=== PATIENT | male | born 1950 | race Caucasian/White ===

== ENCOUNTER 2017-01-08 11:43 | Emergency (ER) | payer OTHER ==
[~2017-01-08] VITALS: Ht 180.3 cm; Wt 74.4 kg
[~2017-01-08 11:43] MED LIST: ATROVENT 00.5 MG/3 M INH; ELIMITE 5%60 GM TP; PROVENTIL2.5 MG/3 M INH
[2017-01-08 11:59] VITALS: BP 135/86
--- NOTE | 2017-01-08 12:10 | NUR ---
Pt ambulated to bed 4.
--- NOTE | 2017-01-08 12:12 | NUR ---
Dr. Acuna evaluating patient at bedside.
--- NOTE | 2017-01-08 12:16 | NUR ---
66/M presents to the ED for evaluation of body aches and requesting medication refill. Patient states he was recently released from [facility] x2 days ago and was being given HCTZ while in halfway for management of blood pressure. Patient states he was told to go to ER after being released to get a medication refill for HCTZ. Patient also c/o generalized body aches and an intermittent cough. Denies N/V/D. Denies fever or chills. Patient is AOX4, ambulates with steady gait. VSS.
[2017-01-08 12:30] VITALS: BP 135/86
--- NOTE | 2017-01-08 12:30 | NUR ---
Patient discharged with v/s stable. Written and verbal after care instructions given and explained. Patient alert, oriented and verbalized understanding of instructions. Ambulatory with steady gait. All questions addressed prior to discharge. ID band removed. Patient advised to follow up with PMD. Rx of hctz given. Patient educated on indication of medication including possible reaction and side effects. Opportunity to ask questions provided and answered.
--- NOTE | 2017-01-08 12:31 | NUR ---
Chart checked and completed. The patient's care was reviewed and supervised by Alfa Elliott RN.
[2017-02-11] MEDS ORDERED: PROMETHAZINE D118 M1 PO (17:18)
[2017-02-11] MEDS ORDERED: AUGMENTIN 500 M1 TAB PO (17:25)
== END 2017-01-08 12:30 | disposition home or self-care (01) ==
LOC: MED 11:51
DX: Z76.0 Encounter for issue of repeat prescription (principal); I10 Essential (primary) hypertension; J44.9 Chronic obstructive pulmonary disease, unspecified; J45.909 Unspecified asthma, uncomplicated; R05 Cough; F17.200 Nicotine dependence, unspecified, uncomplicated; Z88.5 Allergy status to narcotic agent

== ENCOUNTER 2017-02-01 10:58 | Emergency (ER) | payer OTHER ==
[~2017-02-01] VITALS: Ht 180.3 cm; Wt 77.1 kg
[2017-02-01 11:06] VITALS: BP 142/84
--- NOTE | 2017-02-01 12:30 | NUR ---
PATIENT LEFT WITHOUT BEING SEEN BY DR. CARBALLO. NO FURTHER CARE PROVIDED FOR PATIENT.
[2017-02-11] MEDS ORDERED: PROMETHAZINE D118 M1 PO (17:18)
[2017-02-11] MEDS ORDERED: AUGMENTIN 500 M1 TAB PO (17:25)
== END 2017-02-01 12:30 | disposition left against medical advice (07) ==
LOC: MED 10:58
DX: R05 Cough (principal); Z53.21 Procedure and treatment not carried out due to patient leaving prior to being seen by health care provider

== ENCOUNTER 2017-02-01 17:43 | Emergency (ER) | payer OTHER ==
[~2017-02-01] VITALS: Ht 177.8 cm; Wt 77.1 kg
[2017-02-01 17:54] VITALS: BP 137/81
--- NOTE | 2017-02-01 19:24 | NUR ---
PT TAKEN TO BED 4
--- NOTE | 2017-02-01 19:34 | NUR ---
PT IS 66/M BIB SELF C/O COUGH AND CONGESTION X 2 WEEKS, STATES HE HAS HX OF COPD AND SMOKES A PACK A DAY. DENIES N/V/D; SKIN IS PINK/WARM/DRY; AAOX4 WITH EVEN AND STEADY GAIT; HR EVEN AND REGULAR; PT DENIES ANY FEVER, CP, SOB AT THIS TIME; PATIENT STATES PAIN OF 0/10 AT THIS TIME; VSS; PATIENT POSITIONED FOR COMFORT; HOB ELEVATED; BEDRAILS UP X2; BED DOWN. ER MD MADE AWARE OF PT STATUS.
[2017-02-01] MEDS ORDERED: cefTRIAXone 1,000 MG in LIDOCAINE 1% ED 2.1 ML IM ONE (19:55)
--- NOTE | 2017-02-01 20:52 | NUR ---
Dr. Rosenbaum evaluating patient at bedside.
[2017-02-01 20:57] VITALS: BP 124/72
--- NOTE | 2017-02-01 20:57 | NUR ---
Patient discharged with v/s stable. Written and verbal after care instructions given and explained. Patient alert, oriented and verbalized understanding of instructions. Ambulatory with steady gait. All questions addressed prior to discharge. ID band removed. Patient advised to follow up with PMD. Rx of PROMETHAZINE DM AND AUGMENTIN given. Patient educated on indication of medication including possible reaction and side effects. Opportunity to ask questions provided and answered.
[2017-02-11] MEDS ORDERED: PROMETHAZINE D118 M1 PO (17:18)
[2017-02-11] MEDS ORDERED: AUGMENTIN 500 M1 TAB PO (17:25)
== END 2017-02-01 20:57 | disposition home or self-care (01) ==
LOC: MED 17:43
DX: J20.9 Acute bronchitis, unspecified (principal); J02.9 Acute pharyngitis, unspecified; J45.909 Unspecified asthma, uncomplicated; J44.9 Chronic obstructive pulmonary disease, unspecified; Z88.5 Allergy status to narcotic agent
CPT/HCPCS: 96372; 99283; J0696; J2001

== ENCOUNTER 2017-02-10 21:34 | Inpatient (IN) | payer OTHER ==
[~2017-02-10] VITALS: Ht 180.3 cm; Wt 76.7 kg
[~2017-02-10 21:34] MED LIST changes: +ATRN INH; -ATROVENT 00.5 MG/3 M INH; -ELIMITE 5%60 GM TP; +PRON INH; -PROVENTIL2.5 MG/3 M INH
[2017-02-10 21:50] VITALS: BP 140/78
--- NOTE | 2017-02-11 00:29 | NUR ---
PT TAKEN TO BED 7
--- NOTE | 2017-02-11 00:29 | NUR ---
PATIENT PRESENTS TO ED WITH L LEG PAIN, 6/10, 16IN GIRTH AT THE [facility] AND 11IN AT [place] . PT STATES HE HAS COPD AND BRONCHITIS, IS A SMOKER AND HAS BEEN SMOKING SINCE HE WAS 9 YEARS OLD.HE WAS PRESCRIBED AMOX 5 DAYS AGO FOR PNEUMONIA AND IS STILL CURRENTLY TAKING THE MEDICATIONS .PT DENIES N/V/D; SKIN IS PINK/WARM/DRY; AAOX4 WITH EVEN AND STEADY GAIT; LUNGS CLEAR BL; HR EVEN AND REGULAR; PT DENIES ANY FEVER, CP, SOB, OR COUGH AT THIS TIME; PATIENT STATES PAIN OF 6/10 AT THIS TIME; VSS; PATIENT POSITIONED FOR COMFORT; HOB ELEVATED; BEDRAILS UP X2; BED DOWN. ER MD MADE AWARE OF PT STATUS.
--- NOTE | 2017-02-11 00:30 | NUR ---
Dr. Sanches evaluating patient at bedside.
--- NOTE | 2017-02-11 00:51 | NUR ---
X-Ray at bedside.
[2017-02-11 01:05] LABS: HEMATOCRIT 30.5 % (36-52); HEMOGLOBIN 9.7 g/dL (12.0-18.0); MEAN CORPUSCULAR HEMOGLOBIN 25 pg (27-31); MEAN CORPUSCULAR HGB CONC 32 g/dL (33-37); MEAN CORPUSCULAR VOLUME 78 fL (80-94); PLATELET COUNT (AUTO) 517 K/uL (140-450); RED BLOOD CELL COUNT(AUTO) 3.92 MIL/uL (4.20-6.10); RED CELL DISTRIBUTION WIDTH 16.7 % (11.6-13.7); WHITE BLOOD COUNT (AUTO) 9.8 K/uL (4.8-10.8)
--- NOTE | 2017-02-11 01:06 | NUR ---
Ultrasound at bedside.
--- NOTE | 2017-02-11 02:44 | NUR ---
Pt report given to ISABELL RAMIREZ . Transfer of care at this time.
--- NOTE | 2017-02-11 02:44 | NUR ---
Patient will be admitted to care of DR MCNEAL. Admited to MS 107A. Will go to room 107A . Belongings list completed. Report to ISABELL RAMIREZ .
--- NOTE | 2017-02-11 02:45 | NUR ---
RECEIVED PT REPORT FROM [facility] AT THIS TIME, PT WILL BE ADMITTED TO FLOOR.
--- NOTE | 2017-02-11 03:05 | NUR ---
PT AMBULATED TO ROOM WITHOUT ASSISTANCE. IS STABLE, ORIENTED TO UNIT. RECEIVED IN ROOM 107A. SHIFT ASSESSMENT DONE, PT NOTED A/O X3, NO ACUTE DISTRESS NOTED AT THIS TIME. PT VITAL SIGNS ARE STABLE, PT ON ROOM AIR WITH OXYGEN SATURATION AT 98%. PT IS AFEBRILE. DENIES CHEST PAIN, SOB, OR ANY PAIN AND DISCOMFORT. IV ACCESS TO RT AC #20G, PATENT AND INTACT, SALINE LOCKED. ALL SKIN INTACT. LUNG SOUNDS ARE CLEAR, BOWEL SOUNDS ARE ACTIVE. SAFETY PRECAUTIONS IMPLEMENTED. DISCUSSED PLAN OF CARE WITH PT, VERBALIZED UNDERSTANDING. CALL LIGHT PLACED WITHIN REACH. WILL CONTINUE TO MONITOR PT.
[2017-02-11 03:08] VITALS: BP 143/72
--- NOTE | 2017-02-11 04:00 | NUR ---
PT SLEEPING WELL, NO S/S OF DISTRESS. CALL LIGHT WITHIN REACH.
[2017-02-11 05:11] LABS: BASOPHILS % (MANUAL) 1 % (0-2); EOSINOPHILS % (MANUAL) 2 % (0-4); LYMPHOCYTES % (MANUAL) 31 % (20-46); MONOCYTES % (MANUAL) 5 % (5-12); NEUTROPHILS % (MANUAL) 61 (43-65)
--- NOTE | 2017-02-11 06:20 | NUR ---
ATTEMPT TO REACH DR. NICHOLSON LINE AT [phone], NO ANSWER BUSY TONE. NEED ORDERS FOR PT.
[2017-02-11] MEDS ORDERED: MORPHINE SULFATE 2 MG/ML SYR IVP PRN (06:35)
[2017-02-11] MEDS ORDERED: LORazepam 2 MG/ML VIAL IVP PRN (06:35)
[2017-02-11] MEDS ORDERED: ALBUTEROL 0.083% 2.5 MG/3 ML NEBU IH PRN (06:35)
[2017-02-11] MEDS ORDERED: ACETAMINOPHEN 325 MG TAB PO PRN (06:35)
[2017-02-11] MEDS ORDERED: ONDANSETRON 4 MG/2 ML VIAL IVP PRN (06:35)
--- NOTE | 2017-02-11 07:30 | NUR ---
DR HANCOCK AT PT BEDSIDE. PT ENDORSED TO TRAVIS RAMIREZ FOR CONTINUITY OF CARE AT BEDSIDE. PT STABLE, NO DISTRESS. CALL LIGHT WITHIN REACH.
--- NOTE | 2017-02-11 07:31 | NUR ---
RECEIVED REPORT AT BEDSIDE FOR CONTINUITY OF CARE. DR. HANCOCK IS EXAMINING HIM. PT IS ALERT AND ORIENTED X 4. HE DOES HAVE SLURRED SPEAK, HARD TO UNDERSTAND. HE HAS AN IV R AC 20G SL. HE HAS AN EDEMATOUS L ANKLE. HE IS TO HAVE A CT OF CHEST W/W/O CONTRAST TODAY. RECEIVED SIGNATURE FOR CONSENT. NO OTHER COMPLAINTS. NO SIGNS OF DISTRESS. WILL CONTINUE TO MONITOR PT.
[2017-02-11 08:00] VITALS: BP 149/99
--- NOTE | 2017-02-11 08:05 | NUR ---
V/S WITHIN NORMAL RANGE. BP SLIGHTLY HIGH. ASKED PT IF HE HAS HX OF HTN. PT STATES NO. PT HAS NO OTHER COMPLAINTS OR PAIN. HE IS EATING BREAKFAST. ATE 100%. WILL CONTINUE TO MONITOR PT.
--- NOTE | 2017-02-11 08:24 | NUR ---
PATIENT HAS BEEN SCREENED AND CATEGORIZED MODERATE NUTRITION RISK. PATIENT WILL BE SEEN WITHIN 3-5 DAYS OF ADMISSION. 02/13/17-02/15/[address]
[2017-02-11] MEDS: ENOXAPARIN 40 MG/0.4 ML SYR SUBQ SCH (09:18)
--- NOTE | 2017-02-11 09:20 | NUR ---
ADMINISTERED MORNING MEDS. PT TOLERATED WELL. PT IS VISITING WITH FRIEND. WILL CONTINUE TO MONITOR.
--- NOTE | 2017-02-11 09:40 | NUR ---
DR. WIGGINS CALLED. ASKED ABOUT PT. GAVE HIM HX AND REPORT. GAVE TELEPHONE ORDERS. WILL PUT THEM IN.
[2017-02-11 09:49] LABS: INR 1.1 (0.8-1.2); PARTIAL THROMBOPLASTIN TIME 28.1 secs (22-35.6)
[2017-02-11 09:50] LABS: PROTHROMBIN TIME 10.1 secs (10.8-13.4)
[2017-02-11 09:51] LABS: ANION GAP 10.6 (8-16); CALCIUM 8.3 mg/dL (8.5-10.1); CARBON DIOXIDE 30.4 mmol/L (21-32); CREATININE 0.8 mg/dL (0.6-1.3); TOTAL BILIRUBIN 0.2 mg/dL (0.0-1.0)
[2017-02-11 09:52] LABS: ALBUMIN 2.5 g/dL (3.4-5.0); TOTAL PROTEIN, SERUM 7.3 g/dL (6.4-8.2)
[2017-02-11 09:54] LABS: CREATINE KINASE MB 1.3 ng/mL (0-3.6)
[2017-02-11] MEDS ORDERED: ECOTRIN 81 MG TABEC PO SCH (10:02)
[2017-02-11] MEDS ORDERED: LOSARTAN 50 MG TAB PO SCH (10:02)
[2017-02-11] MEDS ORDERED: METOPROLOL 25 MG TAB PO SCH (10:03)
--- NOTE | 2017-02-11 11:00 | NUR ---
RADIOLOGY CAME AND ARCHITECTURAL DESIGNER PT CT CHEST CT W/ AND W/OUT CONTRAST.
--- NOTE | 2017-02-11 11:22 | NUR ---
PT IS BACK FROM CT. PT TOLERATED WELL. VISITING WITH FRIEND. WILL CONTINUE TO MONITOR PT.
--- NOTE | 2017-02-11 11:44 | NUR ---
CM NOTE INITIAL REVIEW FAXED TO [facility] (FAX# [phone]) AND [facility] (FAX# [phone], C: [phone])
[2017-02-11 12:00] VITALS: BP 133/77
--- NOTE | 2017-02-11 13:00 | NUR ---
PT IS STILL HUNGRY. WANTED ME TO BUY HIM A SODA AND A CANDY BAR. PT TRIED TO GIVE ME MONEY. I TOLD HIM, I COULD CALL THE KITCHEN AND ORDER A SODA, NON CAFFEINATED AND A SANDWICH. PT AGREED. ORDERED HIM A CHICKEN SALAD AND A DIET SODA. PT'S FRIEND AT BEDSIDE. SHE'S BEEN HERE ALL DAY, VISITING WITH HIM. PT IS STABLE AND HAS NO COMPLAINTS.
--- NOTE | 2017-02-11 15:05 | NUR ---
ASLEEP RESTING COMFORTABLY NO RESPIRATORY DISTRESS NOTED HHN PRN THERAPY NOT INDICATE AT THIS TIME
[2017-02-11 15:42] LABS: AMPHETAMINE, URINE POS. ng/ml (NEG <=1000); BARBITURATE, URINE NEG. ng/ml (NEG <=200); BENZODIAZEPINE, URINE NEG. ng/mL (NEG <=200); CANNABINOID, URINE NEG. ng/mL (NEG <=50); COCAINE, URINE NEG. ng/mL (NEG <=300); OPIATE, URINE NEG. ng/mL (NEG <=2000); PHENCYCLIDINE SCREEN,URINE NEG. ng/mL (NEG <=25)
[2017-02-11 16:00] VITALS: BP 121/72
--- NOTE | 2017-02-11 16:52 | NUR ---
PT IS PATIENTLY WAITING FOR DINNER. NO SIGNS OF DISTRESS. NO COMPLAINTS. FRIEND AT BEDSIDE. WILL CONTINUE TO MONITOR PT.
[2017-02-11] MEDS ORDERED: DM/P118S7 PO (17:18)
[2017-02-11] MEDS ORDERED: AMOX-999 PO (17:25)
--- NOTE | 2017-02-11 18:11 | NUR ---
PT FINISHED WITH DINNER. ATE 100%. PT STATES HE COULD EAT ANOTHER TRAY. I TOLD PT THAT IF HE NEEDS A SNACK LATER, HE CAN ASK FOR ANOTHER SANDWICH. NO SIGNS OF DISTRESS. NO COMPLAINTS. PT'S FRIEND IS NOW GONE. HE IS RESTING COMFORTABLY IN BED. WILL CONTINUE TO MONITOR PT.
--- NOTE | 2017-02-11 19:00 | NUR ---
RECEIVED CHANGE OF SHIFT REPORT FORM TRAVIS RAMIREZ FOR PT CONTINUITY OF CARE AT PT BEDSIDE. PT NOTED STABLE, SLEEPING WELL. CALL LIGHT WITHIN REACH.
--- NOTE | 2017-02-11 19:05 | NUR ---
ENDORSED PT TO THE MANAGER [employer] SALES NURSE AT BEDSIDE FOR CONTINUITY OF CARE. PT IS IN STABLE CONDITION. RESTING COMFORTABLY. NO COMPLAINTS.
--- NOTE | 2017-02-11 19:21 | NUR ---
SHIFT ASSESSMENT DONE, PT NOTED A/O X3, NO ACUTE DISTRESS NOTED AT THIS TIME. VITAL SIGNS ARE STABLE, PT ON ROOM AIR WITH OXYGEN SATURATION AT 98%. IS AFEBRILE. DENIES CHEST PAIN, SOB, OR ANY PAIN AND DISCOMFORT. IV ACCESS TO RT AC #20G, PATENT AND INTACT, SALINE LOCKED. ALL SKIN INTACT. LUNG SOUNDS ARE CLEAR, BOWEL SOUNDS ARE ACTIVE. NOTED SMALL RT LOWER LEG AND ANKLE SWELLING, +2 EDMEA, ELEVATED TO PILLOW, COOL TO TOUCH. SAFETY PRECAUTIONS IMPLEMENTED. DISCUSSED PLAN OF CARE WITH PT, VERBALIZED UNDERSTANDING. CALL LIGHT PLACED WITHIN REACH. WILL CONTINUE TO MONITOR PT.
[2017-02-11 20:00] VITALS: BP 124/57
[2017-02-11] MEDS: SIMVASTATIN 20 MG TAB PO SCH (20:25)
--- NOTE | 2017-02-11 20:25 | NUR ---
PROVIDED PT WITH PO SCHEDULED MEDICATIONS, TOLERATED WELL. NO ACUTE S/S OF RESPIRATORY DISTRESS NOTED. PT RESTING WELL. CALL LIGHT WITHIN REACH.
--- NOTE | 2017-02-11 22:50 | NUR ---
PT NOTE ASLEEP AT THIS TIME, NO S/S OF ACUTE DISTRESS. RESTING COMFORTABLY. CALL LIGHT WITHIN REACH.
--- NOTE | 2017-02-11 23:30 | NUR ---
PT WAS SLEEPING WELL, NO S/S OF DISTRESS. VITAL SIGNS REMAINS STABLE. CALL LIGHT WITHIN REACH.
[2017-02-12] VITALS: BP 130/44
--- NOTE | 2017-02-12 02:07 | NUR ---
PT SLEEPING WELL, NO SIGNS OF DISTRESS. CALL LIGHT WITHIN REACH.
[2017-02-12 04:00] VITALS: BP 150/76
--- NOTE | 2017-02-12 04:01 | NUR ---
VITAL SIGNS REMAIN STABLE. NO DISTRESS NOTED. CALL LIGHT WITHIN REACH.
--- NOTE | 2017-02-12 06:03 | NUR ---
PT REMAINS SLEEPING. NO S/S OF ACUTE DISTRESS NOTED. CALL LIGHT WITHIN REACH.
[2017-02-12 06:48] LABS: BASOPHILS % (AUTO) 0.5 % (0.0-2.0); EOSINOPHILS # (AUTO) 0.3 K/uL (0-0.4); HEMATOCRIT 30.8 % (36-52); HEMOGLOBIN 10.2 g/dL (12.0-18.0); LYMPHOCYTES # (AUTO) 2.9 K/uL (2.0-11.5); MEAN CORPUSCULAR HEMOGLOBIN 26 pg (27-31); MEAN CORPUSCULAR HGB CONC 33 g/dL (33-37); MEAN CORPUSCULAR VOLUME 78 fL (80-94); MONOCYTES # (AUTO) 0.6 K/uL (0.8-1.0); NEUTROPHILS # (AUTO) 5.5 K/uL (1.8-7.7); NEUTROPHILS % (AUTO) 59.5 % (42.2-75.2); PLATELET COUNT (AUTO) 502 K/uL (140-450); RED BLOOD CELL COUNT(AUTO) 3.98 MIL/uL (4.20-6.10); RED CELL DISTRIBUTION WIDTH 16.5 % (11.6-13.7); WHITE BLOOD COUNT (AUTO) 9.3 K/uL (4.8-10.8)
[2017-02-12 07:09] LABS: ANION GAP 8.1 (8-16); CALCIUM 8.3 mg/dL (8.5-10.1); CARBON DIOXIDE 30.6 mmol/L (21-32); CREATININE 0.8 mg/dL (0.6-1.3); POTASSIUM 3.7 mmol/L (3.5-5.1)
--- NOTE | 2017-02-12 07:15 | NUR ---
ENDORSED PT TO EZRA Campbell RN AT PT BEDSIDE FOR CONTINUITY OF CARE.
[2017-02-12 07:30] LABS: CREATINE KINASE MB 0.8 ng/mL (0-3.6)
--- NOTE | 2017-02-12 07:30 | NUR ---
RECEIVED PT AAOX4. NO SOB NOTED. NO C/O PAIN AT THIS TIME. IV TO RT AC PATENT AND INTACT. CHEST CLEAR. ABDOMEN SOFT, BOWEL SOUNDS PRESENT. LT ANKLE SWELLING NOTED, ELEVATED WITH PILLOW WHILE IN BED. NPO MAINTAINED FOR PROCEDURE. INSTRUCTED PT TO CALL FOR ASSISTANCE, CALL LIGHT WITHIN REACH, PT VERBALIZED UNDERSTANDING.
[2017-02-12 08:00] VITALS: BP 145/68
[2017-02-12] MEDS ORDERED: ASPIRIN 81 MG TAB.CHEW PO SCH ×2 (09:00)
[2017-02-12] MEDS ORDERED: LOSARTAN 50 MG TAB PO SCH (09:00)
[2017-02-12] MEDS ORDERED: METOPROLOL 25 MG TAB PO SCH (09:00)
[2017-02-12] MEDS: ENOXAPARIN 40 MG/0.4 ML SYR SUBQ SCH (09:22)
[2017-02-12 11:20] VITALS: BP 125/73
--- NOTE | 2017-02-12 11:20 | NUR ---
PT WHEELED BY [facility] ([facility]) TO NUCLEAR DEPARTMENT FOR STRESS TEST. NPO MAINTAINED, VITAL SIGNS STABLE.
--- NOTE | 2017-02-12 13:00 | NUR ---
PT CAME BACK FROM NUCLEAR DEPARTMENT FROM STRESS TEST , IN STABLE CONDITION. LUNCH SERVED.
--- NOTE | 2017-02-12 13:30 | NUR ---
CM NOTE INITIAL REVIEW FAXED TO [facility] (FAX# [phone]) AND [facility] (FAX# [phone], C: [phone])
--- NOTE | 2017-02-12 14:04 | NUR ---
DOBUTAMINE STRESS TEST DONE
--- NOTE | 2017-02-12 14:09 | NUR ---
PT WHEELED BACK BY [facility] TO [facility] FOR 2ND PHASE OF STRESS TEST.
[2017-02-12] MEDS ORDERED: DOBUTamine 250 MG/D5W PREMIX 250 ML IV SCH (15:25)
[2017-02-12 16:00] VITALS: BP 138/89
--- NOTE | 2017-02-12 17:30 | NUR ---
PAGED DR. WIGGINS FOR DOBUTAMINE STRESS TEST RESULTS, AWAITING FOR CALL BACK.
--- NOTE | 2017-02-12 18:20 | NUR ---
PT'S FACE SHEET FAXED TO [facility] ). FAX RECEIVE CONFIRMATION PLACED ON PT'S CHART.
--- NOTE | 2017-02-12 18:30 | NUR ---
PAGED Loc JUNG. REGARDING DR. WIGGINS'S PLAN FOR TRANSFERRING PT TO HIGHER LEVEL OF CARE ([facility]) FOR ANGIOGRAM UNDER DR. HANCOCK SERVICE TOMORROW. AWAITING FOR CALL BACK.
--- NOTE | 2017-02-12 19:21 | NUR ---
PT AWAKE, MAKING A CALL ON THE PHONE. NO COMPLAINTS MADE. DR. HANCOCK HERE TO SEE PT. WILL ENDORSE TO NEXT SHIFT NURSE FOR CONTINUITY OF CARE.
--- NOTE | 2017-02-12 19:31 | NUR ---
RECEIVED PT IN STABLE CONDITION FROM ASHLEY MUNGUIA. NO SOB, NO SIGNS OF DISTRESS. PT IS AOX4, AMBULATORY. VS STABLE ON ROOM AIR. PT DENIES PAIN AT THIS TIME. PT AWARE THAT HE [place] [facility] [place], AND WILL BE NPO AFTER 0700 FOR ANGIOGRAM PROCEDURE. IV TO LT HAND 20G PATENT, ASYMPTOMATIC, INTACT, PATENT, SALINE LOCKED. SKIN IS INTACT. SWELLING NOTED TO LT LEG. PLAN OF CARE DISCUSSED WITH PT. SAFETY MEASURES IN PLACE. CALL LIGHT WITHIN REACH. WILL CONTINUE TO MONITOR.
[2017-02-12 20:00] VITALS: BP 125/66
[2017-02-12] MEDS: SIMVASTATIN 20 MG TAB PO SCH (20:41)
--- NOTE | 2017-02-12 20:41 | NUR ---
PT TOLERATED DUE MED WELL. NO SOB, NO SIGNS OF DISTRESS. PT DENIES PAIN AT THIS TIME. IV SITE ASYMPTOMATIC, INTACT, SALINE LOCKED. PT REQUESTED PUDDING, PROVIDED PT WITH PUDDING. PLAN OF CARE DISCUSSED WITH PT. CALL LIGHT WITHIN REACH. SAFETY MEASURES IN PLACE. WILL CONTINUE TO MONITOR.
--- NOTE | 2017-02-12 21:46 | NUR ---
FAXED PTS INFO TO [facility] TO [place] [facility] [place].
--- NOTE | 2017-02-12 22:06 | NUR ---
SPOKE WITH GRAHAM FROM [facility], PTS ALS TRANSPORT IS ARRANGED FOR TOMORROW, 02/13 AT 0800 TO [facility] [place].
--- NOTE | 2017-02-12 22:31 | NUR ---
PT ASLEEP IN BED. NO SOB, NO SIGNS OF DISTRESS. IV SITE ASYMPTOMATIC, INTACT, SALINE LOCKED. SAFETY MEASURES IN PLACE. CALL LIGHT WITHIN REACH. WILL CONTINUE TO MONITOR.
[2017-02-13] VITALS: BP 112/55
--- NOTE | 2017-02-13 00:10 | NUR ---
VS STABLE ON ROOM AIR. NO SOB, NO SIGNS OF DISTRESS. PT DENIES PAIN AT THIS TIME. IV SITE ASYMPTOMATIC, INTACT, SALINE LOCKED. PLAN OF CARE DISCUSSED WITH PT. SAFETY MEASURES IN PLACE. CALL LIGHT WITHIN REACH. WILL CONTINUE TO MONITOR.
[2017-02-13 01:59] VITALS: BP 130/59
--- NOTE | 2017-02-13 03:11 | NUR ---
PTS HR DROP TO 47, CHECKED ON PT. EASILY AWAKE, NO SOB, NO SIGNS OF DISTRESS, NO C/O PAIN. VS STABLE ON ROOM AIR. WILL CONTINUE TO MONITOR.
[2017-02-13 04:00] VITALS: BP 130/59
[2017-02-13 06:09] LABS: BASOPHILS # (AUTO) 0.2 K/uL (0.00-0.22); BASOPHILS % (AUTO) 1.6 % (0.0-2.0); EOSINOPHILS # (AUTO) 0.2 K/uL (0-0.4); EOSINOPHILS % (AUTO) 2.3 % (0.0-4.0); HEMATOCRIT 30.4 % (36-52); HEMOGLOBIN 9.8 g/dL (12.0-18.0); LYMPHOCYTES # (AUTO) 2.5 K/uL (2.0-11.5); LYMPHOCYTES % (AUTO) 26.3 % (20.5-51.1); MEAN CORPUSCULAR HEMOGLOBIN 25 pg (27-31); MEAN CORPUSCULAR HGB CONC 32 g/dL (33-37); MEAN CORPUSCULAR VOLUME 78 fL (80-94); MONOCYTES # (AUTO) 0.7 K/uL (0.8-1.0); MONOCYTES % (AUTO) 7.5 % (1.7-9.3); NEUTROPHILS % (AUTO) 62.3 % (42.2-75.2); PLATELET COUNT (AUTO) 530 K/uL (140-450); RED BLOOD CELL COUNT(AUTO) 3.91 MIL/uL (4.20-6.10); WHITE BLOOD COUNT (AUTO) 9.6 K/uL (4.8-10.8)
[2017-02-13 06:31] LABS: INR 1.1 (0.8-1.2); PARTIAL THROMBOPLASTIN TIME 26.1 secs (22-35.6); PROTHROMBIN TIME 10.3 secs (10.8-13.4)
[2017-02-13 06:41] LABS: ANION GAP 8.5 (8-16); CALCIUM 8.2 mg/dL (8.5-10.1); CARBON DIOXIDE 30.4 mmol/L (21-32); CREATININE 0.9 mg/dL (0.6-1.3); POTASSIUM 3.9 mmol/L (3.5-5.1)
--- NOTE | 2017-02-13 06:48 | NUR ---
REPORT CALLED TO ASHLEY RUTHERFORD. AT [facility].
--- NOTE | 2017-02-13 07:30 | NUR ---
RECEIVED PT AAOX4. NO SOB NOTED. NO C/O PAIN AT THIS TIME. IV TO LT HAND PATENT AND INTACT. CHEST CLEAR. ABDOMEN SOFT, BOWEL SOUNDS PRESENT. SLIGHT LT ANKLE SWELLING NOTED, ELEVATED WITH PILLOW WHILE IN BED. NPO MAINTAINED FOR ANGIOGRAM AT [facility]. INSTRUCTED PT TO CALL FOR ASSISTANCE, CALL LIGHT WITHIN REACH, PT VERBALIZED UNDERSTANDING.
--- NOTE | 2017-02-13 07:32 | NUR ---
ENDORSED PT IN STABLE CONDITION TO EZRA Cheung RN. ALL NEEDS HAVE BEEN MET AT THIS TIME.
--- NOTE | 2017-02-13 07:32 | NUR ---
PER [facility] [employer] DIRECTOR REQUEST, ENDORSED TO EZRA Cheung TO FAX AM CBC, BMP, PT, PTT, AND LATEST EKG TO THEM.
--- NOTE | 2017-02-13 07:40 | NUR ---
DISCHARGE INSTRUCTIONS GIVEN TO PT WHICH VERBALIZED FULL UNDERSTANDING OF THE REASON WHY PT IS BEING TRANSFERRED TO [facility].
[2017-02-13 07:45] VITALS: BP 149/87
--- NOTE | 2017-02-13 08:00 | NUR ---
PT WHEELED OUT BY [facility]SPORT IN STABLE CONDITION. PT AAOX4. NO SOB NOTED. NO C/O PAIN AT THIS TIME. DISCHARGE PAPERS SIGNED BY PT, VERBALIZED UNDERSTANDING. PT IS GOING TO [facility] FOR ANGIOGRAM.
--- NOTE | 2017-02-13 08:05 | NUR ---
ekg, cbc, cmp, pt, inr and ptt faxed to KRISH AT [facility] [employer] ([phone]).
--- NOTE | 2017-02-13 08:29 | NUR ---
FAXED CONCURRENT REVIEW TO [facility] [phone] PHONE LETA [phone] APRIL [phone] SPOKE WITH RHIANNA AT [facility],. SHE SAID THE PROCEDURE WILL BE DONE AT 1300. I INFORMED HER THAT THE PATIENT WAS ALREADY PICKED UP BY [facility]. I SPOKE WITH ERMIAS FROM [facility]. THE AUTH FOR [facility]ORT IS [id number], AND I INFORMED [facility]. THE AUTH FRO [facility] IS [id number] AND I INFORMED RHIANNA AT [facility].
== END 2017-02-13 08:00 | disposition short-term general hospital (02) | DRG 198 ==
LOC: MED 21:34 → MTU 02-11 05:54
PROVIDERS: ADMIT Hospitalist; ATTEND Hospitalist
DX: I20.9 Angina pectoris, unspecified (principal); J44.9 Chronic obstructive pulmonary disease, unspecified; F15.10 Other stimulant abuse, uncomplicated; M19.90 Unspecified osteoarthritis, unspecified site; F17.210 Nicotine dependence, cigarettes, uncomplicated; R60.0 Localized edema; F19.10 Other psychoactive substance abuse, uncomplicated; D64.9 Anemia, unspecified; Z59.0 Homelessness; Z87.828 Personal history of other (healed) physical injury and trauma
CPT/HCPCS: 36415; 71010; 71270; 80048; 80053; 80305; 82550; 82553; 83735; 83880; 84484; 85025; 85379; 85610; 85730; 87081; 93005; 93017; 93971; 99285; A9500; A9502; J1250; J1650; Q0092; Q9967

== ENCOUNTER 2017-02-21 23:53 | Emergency (ER) | payer OTHER ==
[~2017-02-21] VITALS: Ht 180.3 cm; Wt 74.8 kg
[~2017-02-21 23:53] MED LIST changes: -ATRN INH; +ATROVENT 00.5 MG/3 M INH; +AUGMENTIN 500 M1 TAB PO; +ELIMITE 5%60 GM TP; +PROMETHAZINE D118 M1 PO; -PRON INH; +PROVENTIL2.5 MG/3 M INH
--- NOTE | 2017-02-22 02:53 | NUR ---
Patient to bed 08.
--- NOTE | 2017-02-22 02:55 | NUR ---
Dr. Akbar evaluating patient at bedside.
[2017-02-22 03:17] VITALS: BP 125/76
--- NOTE | 2017-02-22 03:17 | NUR ---
Patient discharged with v/s stable. Written and verbal after care instructions given and explained. Patient verbalized understanding. Ambulatory with steady gait. All questions addressed prior to discharge. Advised to follow up with PMD.
== END 2017-02-22 03:17 | disposition home or self-care (01) ==
LOC: MED 23:53
DX: S80.11XA Contusion of right lower leg, initial encounter (principal); J44.9 Chronic obstructive pulmonary disease, unspecified; X58.XXXA Exposure to other specified factors, initial encounter; Y93.89 Activity, other specified; Y92.89 Other specified places as the place of occurrence of the external cause; Y99.8 Other external cause status

== ENCOUNTER 2017-06-30 10:08 | Emergency (ER) | payer OTHER ==
[~2017-06-30] VITALS: Ht 170.2 cm; Wt 72.6 kg
[~2017-06-30 10:08] MED LIST changes: +ATRN INH; -ATROVENT 00.5 MG/3 M INH; -AUGMENTIN 500 M1 TAB PO; -ELIMITE 5%60 GM TP; -PROMETHAZINE D118 M1 PO; +PRON INH; -PROVENTIL2.5 MG/3 M INH
[2017-06-30 10:55] VITALS: BP 176/78
[2017-06-30 14:19] VITALS: BP 148/75
== END 2017-06-30 14:19 | disposition home or self-care (01) ==
LOC: MED 10:10
DX: I10 Essential (primary) hypertension (principal); Z88.5 Allergy status to narcotic agent; J44.9 Chronic obstructive pulmonary disease, unspecified; Z98.61 Coronary angioplasty status; F17.200 Nicotine dependence, unspecified, uncomplicated
CPT/HCPCS: 99283

== ENCOUNTER 2018-05-08 20:23 | Inpatient (IN) | payer OTHER ==
[~2018-05-08] VITALS: Ht 177.8 cm; Wt 76.7 kg
[~2018-05-08 20:23] MED LIST changes: +ALBUTEROL 0.083% 2.5 MG/3 ML NEBU INH ONE; +MAG SULF 2000 MG/WATER PREMIX 50 ML IV ONE; +NACL 0.9% 1,000 ML IV ONE; +methylPREDNISolone SS 125 MG in WATER STERILE 2 ML IV ONE
[2018-05-08 20:31] VITALS: BP 180/84
--- NOTE | 2018-05-08 20:33 | NUR ---
TO BED # 3 AMBULATORY, REPORT GIVEN TO ABHAY RAMIREZ.
--- NOTE | 2018-05-08 20:34 | NUR ---
PATIENT PRESENTS TO ED WITH SOB X4 DAYS. PT DENIES N/V/D; SKIN IS PINK/WARM/DRY; AAOX4 WITH EVEN AND STEADY GAIT; LUNGS CLEAR BL; HR EVEN AND REGULAR; PT DENIES ANY FEVER, CP, OR COUGH AT THIS TIME; PATIENT STATES PAIN OF 6/10 AT THIS TIME; VSS; PATIENT POSITIONED FOR COMFORT; HOB ELEVATED; BEDRAILS UP X1; BED DOWN. ER MD MADE AWARE OF PT STATUS.
--- NOTE | 2018-05-08 20:36 | NUR ---
Dr. Rosenbaum evaluating patient at bedside.
--- NOTE | 2018-05-08 20:56 | NUR ---
Breathing treatment administered at bedside by respiratory therapist.
--- NOTE | 2018-05-08 21:06 | NUR ---
PATIENT CAME IN TO ER COMPLAINING OF SHORTNESS OF BREATH THAT HAS LASTED 4 DAYS. STATES THAT HE HAS A PRODUCTIVE COUGH THAT PRODUCES YELLOW AND GREEN PHLEGM. PT SMOKES HALF A PACK A DAY FOR 72 YEARS.
[2018-05-08 21:17] LABS: BASOPHILS % (AUTO) 0.5 % (0.0-2.0); EOSINOPHILS # (AUTO) 0.2 K/uL (0-0.4); EOSINOPHILS % (AUTO) 1.4 % (0.0-4.0); HEMOGLOBIN 11.8 g/dL (12.0-18.0); LYMPHOCYTES # (AUTO) 2.5 K/uL (2.0-11.5); LYMPHOCYTES % (AUTO) 23.6 % (20.5-51.1); MEAN CORPUSCULAR HEMOGLOBIN 29 pg (27-31); MEAN CORPUSCULAR HGB CONC 34 g/dL (33-37); MEAN CORPUSCULAR VOLUME 86.2 fL (80-94); MONOCYTES # (AUTO) 0.8 K/uL (0.8-1.0); MONOCYTES % (AUTO) 7.8 % (1.7-9.3); NEUTROPHILS # (AUTO) 7.1 K/uL (1.8-7.7); NEUTROPHILS % (AUTO) 66.7 % (42.2-75.2); PLATELET COUNT (AUTO) 374 K/uL (140-450); RED BLOOD CELL COUNT(AUTO) 4.06 MIL/uL (4.20-6.10); RED CELL DISTRIBUTION WIDTH 13.9 % (11.6-13.7); WHITE BLOOD COUNT (AUTO) 10.7 K/uL (4.8-10.8)
[2018-05-08] MEDS ORDERED: LEVOFLOXACIN 750 MG/D5W PREMIX 150 ML IV ONE (21:30)
[2018-05-08] MEDS ORDERED: VANCOMYCIN 1,000 MG in DEXTROSE 5% 250 ML IV ONE (21:30)
[2018-05-08 21:31] LABS: ALBUMIN 2.9 g/dL (3.4-5.0); ANION GAP 13.3 (8-16); CARBON DIOXIDE 26.8 mmol/L (21-32); CREATININE 1.1 mg/dL (0.7-1.3); POTASSIUM 4.1 mmol/L (3.5-5.1); TOTAL BILIRUBIN 0.2 mg/dL (0.0-1.0)
[2018-05-08] MEDS ORDERED: VANCOMYCIN 1,000 MG VIAL ONE (21:50)
[2018-05-08] MEDS ORDERED: VANCOMYCIN PER PHARMACY MC PRN (23:10)
[2018-05-08] MEDS ORDERED: ACETAMINOPHEN 325 MG TAB PO PRN (23:30)
[2018-05-08] MEDS ORDERED: ACETAMINOPHEN 325 MG TAB PO SCH (23:30)
--- NOTE | 2018-05-08 23:39 | NUR ---
ADMITTED PT FROM ER VIA WHEELCHAIR. AAOX4. NO RESP DISTRESS NOTED. ON ROOM AIR. NO C/O PAIN. IV TO LEFT AC#20G AND RIGHT AC#20G, PATENT AND INTACT. SKIN INTACT. ORIENTED PT TO ROOM. DISCUSSED PLAN OF CARE, PT VERBALIZED UNDERSTANDING. SAFETY PRECAUTION IN PLACE. CALL LIGHT WITHIN REACH.
--- NOTE | 2018-05-08 23:55 | NUR ---
Patient will be admitted to care of DR. HANCOCK. Admited to . Will go to room. Belongings list completed. Report to .
[2018-05-09] VITALS: BP 147/78
--- NOTE | 2018-05-09 00:10 | NUR ---
PT ASKED FOR SNACK. SNACK PROVIDED. NO C/O SOB OR PAIN.
[2018-05-09] MEDS ORDERED: ALBUTEROL SULFATE/IPRATROPIU 3 ML SOL IH PRN (01:20)
--- NOTE | 2018-05-09 01:50 | NUR ---
PT LYING IN BED, WATCHING TV. NO C/O SOB. ALL NEEDS MET AT THIS TIME. CALL LIGHT WITHIN REACH.
--- NOTE | 2018-05-09 04:30 | NUR ---
PT SLEEPING BUT EASILY AROUSABLE. NO S/S OF DISTRESS.
--- NOTE | 2018-05-09 06:30 | NUR ---
PT SLEEPING BUT WAKES EASILY. NO S/S OF RESP DISTRESS. NO S/S OF PAIN OR DISCOMFORT.
[2018-05-09] MEDS: ALBUTEROL SULFATE/IPRATROPIU 3 ML SOL IH SCH ×4 (07:18→19:04)
--- NOTE | 2018-05-09 07:20 | NUR ---
ENDORSED PT TO DAY SHIFT NURSE. PT IN STABLE CONDITION.
--- NOTE | 2018-05-09 07:21 | NUR ---
RECEIVED REPORT FROM THE PM NURSE AT THE BEDSIDE . PT WAS SLEEPING . UPDATED BOARD. PT LYING COMFORTABLY, NO SIGN OF DISTRESS NOTED. IV LINE INFUSING WELL. IV SITE LFT AND RT AC 20G. PT ON ROOM AIR. WILL CONTINUE TO MONITOR PT.
[2018-05-09 08:00] VITALS: BP 151/80
[2018-05-09 08:30] LABS: BASOPHILS % (AUTO) 0.5 % (0.0-2.0); HEMATOCRIT 35.7 % (36-52); HEMOGLOBIN 12.1 g/dL (12.0-18.0); LYMPHOCYTES # (AUTO) 0.8 K/uL (2.0-11.5); LYMPHOCYTES % (AUTO) 9.3 % (20.5-51.1); MEAN CORPUSCULAR HEMOGLOBIN 29 pg (27-31); MEAN CORPUSCULAR HGB CONC 34 g/dL (33-37); MONOCYTES # (AUTO) 0.2 K/uL (0.8-1.0); MONOCYTES % (AUTO) 2.9 % (1.7-9.3); NEUTROPHILS # (AUTO) 7.1 K/uL (1.8-7.7); NEUTROPHILS % (AUTO) 87.3 % (42.2-75.2); PLATELET COUNT (AUTO) 385 K/uL (140-450); WHITE BLOOD COUNT (AUTO) 8.1 K/uL (4.8-10.8)
--- NOTE | 2018-05-09 08:30 | NUR ---
SKIN TEAR NOTED ON THE ELBOW OF RT HAND. PT STATES THAT HE HAD SKIN TEAR ON ELBOW BEFORE HE GOT ADMITTED TO THE HOSPITAL. HE GOT IT WHEN SOMEONE TACKLED HIM FROM THE BACK OUTSIDE. PT HAD HIMSELF PUT BAND AID ON HIS SKIN TEAR. CHARGE NURSE NOTIFIED. PUT DRY DRESSING ON THE WOUND. WILL CONTINUE TO ASSESS THE WOUND AND SKIN INTEGRITY. PT STABLE AT THIS TIME. WILL CONTINUE TO MONITOR PT.
[2018-05-09 08:53] LABS: ANION GAP 13.6 (8-16); CARBON DIOXIDE 23.6 mmol/L (21-32); CREATININE 0.9 mg/dL (0.7-1.3); POTASSIUM 4.2 mmol/L (3.5-5.1)
[2018-05-09] MEDS: VANCOMYCIN 1GM/DEXT 5% PREMIX 200 ML IV SCH ×2 (10:08→22:00)
--- NOTE | 2018-05-09 10:15 | NUR ---
CHECKED ON PT. ADMINISTERED VANCOMYCIN . PT TOLERATED WELL. CALL LIGHT WITHIN PT REACH. WILL CONTINUE TO MONITOR PT.
[2018-05-09] MEDS ORDERED: FUROSEMIDE 40 MG/4 ML VIAL IVP SCH (11:00)
[2018-05-09] MEDS: NICOTINE TRANSD SYS 21 MG/24 HR PATCH TD SCH (12:42)
--- NOTE | 2018-05-09 13:00 | NUR ---
CHECKED ON PT. ADMINISTERED SOLUMEDROL ORDERED. PT COMFORTABLY BREATHING. NO SOB. PT STABLE AT STABLE. OFFERED CAN OF SODA, JUICE . BED PLACED ON LOW POSITION,. CALL LIGHT WITHIN REACH. WILL CONTINUE TO MONITOR PT.
[2018-05-09] MEDS: methylPREDNISolone SS 125 MG/2 ML VIAL IVP SCH ×2 (13:11→20:46)
--- NOTE | 2018-05-09 15:00 | NUR ---
CHECKED ON PT. SLEEPING AT THIS TIME. NO DISTRESS NOTED. WILL CONTINUE TO MONITOR PT.
[2018-05-09 16:00] VITALS: BP 152/77
--- NOTE | 2018-05-09 16:30 | NUR ---
CHECKED ON PT. NORMAL VITAL SIGNS . BREATHING NORMAL. PT DENIES PAIN. CALL LIGHT WITHIN REACH, WILL CONTINUE TO MONITOR PT.
--- NOTE | 2018-05-09 18:00 | NUR ---
PASSED PT DINNER TRAY. PT LYING ON BED. ASKED IF PT HAS PAIN. PT DENIES PAIN. WILL CONTINUE TO MONITOR PT.
[2018-05-09] MEDS: BUDESONIDE 0.5 MG/2 ML NEBU INH SCH (19:04)
--- NOTE | 2018-05-09 19:10 | NUR ---
ENDORSED PT TO PM NURSE. PT STABLE AT THIS TIME.
--- NOTE | 2018-05-09 19:10 | NUR ---
PT REPORT RECEIVED AT BEDSIDE FROM MICHAEL RN DAY SHIFT NURSE. PT LYING IN LOW BED WITH HOB ELEVATED 45%. PT SKIN INTACT EXCEPT FOR SKIN TEAR ON LEFT ELBOW WHICH WAS COVERED WITH A DRY DRESSING PT HAS 2 IV SITES BOTH 20 G ONE IN LEFT AC/ AND ONE IN THE RIGHT AC PT HERE FOR PN AND LUNG SOUNDS ARE DIMINISHED BILATERALLY WITH SOME CRACKLES NOTED. PT NOTED WITH NON PRODUCTIVE COUGH. HAD NO C/O VOICED AT THIS TIME.
--- NOTE | 2018-05-09 19:50 | NUR ---
PT IN STABLE CONDITION V/S FOLLOWS : T 98.5 P 105 R 20 B/P 114/66 O2 94
[2018-05-09 20:00] VITALS: BP 122/75
[2018-05-09] MEDS: LEVOFLOXACIN 750 MG/D5W PREMIX 150 ML IV SCH (20:46)
--- NOTE | 2018-05-09 21:00 | NUR ---
PT HAS IV ABT LEVAQUIN DUE BUT NO IV FLUIDS ORDERED. CONSULTED WITH RESIDENT ON DUTY, DR. PATTERSON WHO GAVE VERBAL CONSENT TO RUN N/S WITH IV ABT FOR PIGGY BACK IVP AT 25MLS AN HOUR . BOTH IV FLUSHED PATENT, LAB AT BEDSIDE FOR VANCO LEVELS.PT COOPERATIVE WITH LAB DRAWS.
--- NOTE | 2018-05-10 03:23 | NUR ---
PT ASLEEP , NO S/S OF PAIN OR DISTRESS NOTED, BED IN LOW POSITION AND BED ALARM ON. IV SITES FLUSHED PATENT.
[2018-05-10] MEDS: methylPREDNISolone SS 125 MG/2 ML VIAL IVP SCH ×3 (04:48→21:51)
[2018-05-10] MEDS: NACL 0.9% 1,000 ML IV SCH (04:55)
[2018-05-10 05:47] LABS: BASOPHILS % (AUTO) 0.1 % (0.0-2.0); HEMATOCRIT 35.6 % (36-52); HEMOGLOBIN 11.9 g/dL (12.0-18.0); LYMPHOCYTES # (AUTO) 1.1 K/uL (2.0-11.5); LYMPHOCYTES % (AUTO) 7.4 % (20.5-51.1); MEAN CORPUSCULAR HEMOGLOBIN 29 pg (27-31); MEAN CORPUSCULAR HGB CONC 34 g/dL (33-37); MEAN CORPUSCULAR VOLUME 85.7 fL (80-94); MONOCYTES # (AUTO) 0.6 K/uL (0.8-1.0); MONOCYTES % (AUTO) 3.6 % (1.7-9.3); NEUTROPHILS # (AUTO) 13.7 K/uL (1.8-7.7); NEUTROPHILS % (AUTO) 88.9 % (42.2-75.2); PLATELET COUNT (AUTO) 407 K/uL (140-450); RED BLOOD CELL COUNT(AUTO) 4.15 MIL/uL (4.20-6.10); RED CELL DISTRIBUTION WIDTH 14.2 % (11.6-13.7); WHITE BLOOD COUNT (AUTO) 15.4 K/uL (4.8-10.8)
[2018-05-10 06:27] LABS: ANION GAP 16.2 (8-16); CARBON DIOXIDE 26.4 mmol/L (21-32); POTASSIUM 4.6 mmol/L (3.5-5.1)
--- NOTE | 2018-05-10 07:05 | NUR ---
RECEIVED PATIENT REPORT AT BEDSIDE. PATIENT ASLEEP BUT AROUSABLE. NO S/S OF DISTRESS. PATIENT ON ROOM AIR. NO SOB. NO C/O PAIN OR DISCOMFORT AT THIS TIME. BED LOWERED WITH CALL LIGHT WITHIN REACH. WILL CONTINUE TO MONITOR
--- NOTE | 2018-05-10 07:25 | NUR ---
transfer of care report given to Jodi RAMIREZ dayshift nurse.
[2018-05-10] MEDS: ALBUTEROL SULFATE/IPRATROPIU 3 ML SOL IH SCH ×4 (07:44→19:18)
[2018-05-10] MEDS: BUDESONIDE 0.5 MG/2 ML NEBU INH SCH ×2 (07:44→19:19)
[2018-05-10 08:00] VITALS: BP 139/82
[2018-05-10] MEDS: VANCOMYCIN 1GM/DEXT 5% PREMIX 200 ML IV SCH ×2 (10:01→23:59)
--- NOTE | 2018-05-10 13:00 | NUR ---
PATIENT ASLEEP IN BED. NO S/S OF DISTRESS NOTED
[2018-05-10] MEDS: NICOTINE TRANSD SYS 21 MG/24 HR PATCH TD SCH (13:34)
--- NOTE | 2018-05-10 14:46 | NUR ---
FAXED INITIAL REVIEW TO [facility] [phone] PHONE LETA [phone]
--- NOTE | 2018-05-10 14:56 | NUR ---
PATIENT HAS BEEN SCREENED AND CATEGORIZED MODERATE NUTRITION RISK. PATIENT WILL BE SEEN WITHIN 3-5 DAYS OF ADMISSION. 05/11/18 05/13/[address]
--- NOTE | 2018-05-10 15:30 | NUR ---
PATIENT ASLEEP IN BED. NO S/S OF DISTRESS NOTED
[2018-05-10 16:00] VITALS: BP 111/60
--- NOTE | 2018-05-10 17:45 | NUR ---
PATIENT EATING DINNER IN BED. NO S/S OF DISTRESS
--- NOTE | 2018-05-10 19:24 | NUR ---
PATIENT REPORT GIVEN AT BEDSIDE. PATIENT ENDORSED IN STABLE CONDITION
--- NOTE | 2018-05-10 19:25 | NUR ---
RECD. RESTING IN BED, AWAKE, A/OX4, RESPIRATION EVEN AND UNLABORED. 02 SAT - 95% ON ROOM AIR. IV OF NS AT 25 ML/HR INFUSING, LEFT AC G20. PLAN OF CARE FOR THE SHIFT DISCUSSED. VERBALIZED UNDERSTANDING. DENIES PAIN 0/10.
--- NOTE | 2018-05-10 19:25 | NUR ---
Patient's Plan of Care was discussed and reviewed with TUNDE: REYNOLD
[2018-05-10] MEDS: LEVOFLOXACIN 750 MG/D5W PREMIX 150 ML IV SCH (21:51)
--- NOTE | 2018-05-10 21:55 | NUR ---
SCHEDULED MEDICATION GIVEN AND TOLERATED WELL. WILL CONTINUE TO MONITOR.
--- NOTE | 2018-05-10 22:00 | NUR ---
IV INFILTRATED. WILL INSERT NEW IV LINE.
--- NOTE | 2018-05-10 23:45 | NUR ---
NEW IV LINE INSERTED RIGHT FOREARM G22.
[2018-05-11] VITALS: BP 138/75
--- NOTE | 2018-05-11 | NUR ---
NEW IV SITE RIGHT FA 22G. SCHEDULED MEDICATION GIVEN AND TOLERATING WELL. WILL CONTINUE TO MONITOR.
--- NOTE | 2018-05-11 | NUR ---
PUDDING GIVEN REQUESTED.
--- NOTE | 2018-05-11 01:00 | NUR ---
SLEEPING COMFORTABLY IN BED.
--- NOTE | 2018-05-11 03:50 | NUR ---
STILL SLEEPING COMFORTABLY IN BED, NO SOB NOTED.
[2018-05-11 06:21] LABS: HEMATOCRIT 35.4 % (36-52); HEMOGLOBIN 11.5 g/dL (12.0-18.0); LYMPHOCYTES % (AUTO) 5.2 % (20.5-51.1); MEAN CORPUSCULAR HEMOGLOBIN 28 pg (27-31); MEAN CORPUSCULAR HGB CONC 33 g/dL (33-37); MEAN CORPUSCULAR VOLUME 86.3 fL (80-94); MONOCYTES # (AUTO) 0.4 K/uL (0.8-1.0); MONOCYTES % (AUTO) 2.3 % (1.7-9.3); NEUTROPHILS % (AUTO) 92.5 % (42.2-75.2); PLATELET COUNT (AUTO) 413 K/uL (140-450); RED CELL DISTRIBUTION WIDTH 13.9 % (11.6-13.7); WHITE BLOOD COUNT (AUTO) 19.4 K/uL (4.8-10.8)
--- NOTE | 2018-05-11 06:50 | NUR ---
STILL SLEEPING COMFORTABLY IN BED. TOLERATED ALL MEDICATIONS GIVEN DURING SHIFT. NO SOB NOTED. CONDITION REMAIN STABLE. WILL ENDORSE TO AM NURSE FOR CONTINUITY OF CARE.
--- NOTE | 2018-05-11 07:20 | NUR ---
ENDORSED TO AM NURSE FOR CONTINUITY OF CARE.
[2018-05-11] MEDS: ALBUTEROL SULFATE/IPRATROPIU 3 ML SOL IH SCH ×2 (07:40→11:16)
[2018-05-11] MEDS: BUDESONIDE 0.5 MG/2 ML NEBU INH SCH (07:48)
[2018-05-11 08:00] VITALS: BP 138/80
[2018-05-11 08:19] LABS: ANION GAP 13.1 (8-16); CARBON DIOXIDE 26.5 mmol/L (21-32); CREATININE 1.1 mg/dL (0.7-1.3); POTASSIUM 4.6 mmol/L (3.5-5.1)
[2018-05-11] MEDS ORDERED: FUROSEMIDE 40 MG/4 ML VIAL IVP SCH (09:00)
[2018-05-11] MEDS: NACL 0.9% 1,000 ML IV SCH (10:25)
[2018-05-11] MEDS ORDERED: LEVO500T2 PO (10:35)
[2018-05-11] MEDS ORDERED: PRED10TA5 PO (10:35)
[2018-05-11] MEDS ORDERED: ALBU0.0912 INH (10:35)
--- NOTE | 2018-05-11 12:30 | NUR ---
PATIENT DISCHARGED. DISCHARGE INSTRUCTIONS AND DISCHARGE PRESCRIPTIONS GIVEN. PATIENT VERBALIZED UNDERSTANDING. HOMELESS RESOURCE AND BUS PASS PROVIDED TO THE PATIENT. IV LINE DISCONTINUED. PATIENT LEFT WITH ALL HIS BELONGINGS AND DISCHARGE PAPERS. PATIENT LEFT IN STABLE CONDITION
--- NOTE | 2018-05-11 14:56 | NUR ---
FAXED INITIAL REVIEW TO [facility] [phone] PHONE LETA [phone].
== END 2018-05-11 12:30 | disposition home or self-care (01) | DRG 190 ==
LOC: MED 20:23 → MTU 23:18
PROVIDERS: ADMIT Hospitalist; ATTEND Hospitalist
DX: J44.0 Chronic obstructive pulmonary disease with (acute) lower respiratory infection (principal); J18.9 Pneumonia, unspecified organism; J44.1 Chronic obstructive pulmonary disease with (acute) exacerbation; J45.909 Unspecified asthma, uncomplicated; F17.210 Nicotine dependence, cigarettes, uncomplicated; Z66 Do not resuscitate; I50.9 Heart failure, unspecified; I11.0 Hypertensive heart disease with heart failure; F13.10 Sedative, hypnotic or anxiolytic abuse, uncomplicated; Z88.5 Allergy status to narcotic agent; Z91.14 Patient's other noncompliance with medication regimen; Z59.0 Homelessness
CPT/HCPCS: 36415; 71045; 80048; 80053; 80202; 83880; 84484; 85025; 87040; 87081; 94640; 96365; 96367; 96368; 96375; 99291; J1940; J1956; J2930; J3370; J3475; J7030; J7613; J7620; J7626; Q0092

== ENCOUNTER 2018-06-14 15:18 | Inpatient (IN) | payer OTHER ==
[~2018-06-14] VITALS: Ht 170.2 cm; Wt 70.8 kg
[~2018-06-14 15:18] MED LIST changes: +ALBU0.0912 INH; -ALBUTEROL 0.083% 2.5 MG/3 ML NEBU INH ONE; +LEVO500T2 PO; -MAG SULF 2000 MG/WATER PREMIX 50 ML IV ONE; -NACL 0.9% 1,000 ML IV ONE; +PRED10TA5 PO; -methylPREDNISolone SS 125 MG in WATER STERILE 2 ML IV ONE
[2018-06-14 15:44] VITALS: BP 127/91
[2018-06-14] MEDS ORDERED: IPRATROPIUM 0.02% 0.5 MG/2.5 ML NEBU INH ONE (17:50)
[2018-06-14] MEDS ORDERED: methylPREDNISolone SS 125 MG/2 ML VIAL IVP ONE (17:50)
[2018-06-14] MEDS ORDERED: ALBUTEROL 0.083% 2.5 MG/3 ML NEBU INH ONE (17:50)
[2018-06-14] MEDS ORDERED: LEVOFLOXACIN 500 MG TAB PO ONE (17:50)
[2018-06-14] MEDS ORDERED: KETOROLAC 30 MG/ML VIAL IVP ONE (17:50)
[2018-06-14] MEDS ORDERED: cefTRIAXone 1,000 MG VIAL ONE (18:04)
[2018-06-14 18:55] LABS: PROTHROMBIN TIME 9.9 secs (10.8-13.4)
[2018-06-14 18:57] LABS: MEAN CORPUSCULAR HEMOGLOBIN 28 pg (27-31); MEAN CORPUSCULAR HGB CONC 32 g/dL (33-37); MEAN CORPUSCULAR VOLUME 87.6 fL (80-94); PLATELET COUNT (AUTO) 379 K/uL (140-450); RED BLOOD CELL COUNT(AUTO) 4.23 MIL/uL (4.20-6.10); RED CELL DISTRIBUTION WIDTH 13.3 % (11.6-13.7); WHITE BLOOD COUNT (AUTO) 7.2 K/uL (4.8-10.8)
[2018-06-14 18:58] LABS: BASOPHILS # (AUTO) 0.3 K/uL (0.00-0.22); EOSINOPHILS # (AUTO) 0.3 K/uL (0-0.4); LYMPHOCYTES # (AUTO) 2.3 K/uL (2.0-11.5); MONOCYTES # (AUTO) 0.5 K/uL (0.8-1.0); NEUTROPHILS # (AUTO) 3.8 K/uL (1.8-7.7)
[2018-06-14 19:10] LABS: ANION GAP 8.4 (8-16); POTASSIUM 3.4 mmol/L (3.5-5.1)
[2018-06-14 19:11] LABS: ALBUMIN 3.2 g/dL (3.4-5.0); CREATININE 1.1 mg/dL (0.7-1.3); TOTAL BILIRUBIN 0.4 mg/dL (0.0-1.0)
[2018-06-14] MEDS ORDERED: ALBUTEROL 0.083% 2.5 MG/3 ML NEBU INH PRN (19:40)
[2018-06-14] MEDS ORDERED: guaiFENesin 20 MG/ML UDC PO PRN (19:40)
[2018-06-14] MEDS ORDERED: ACETAMINOPHEN 325 MG TAB PO PRN (19:40)
[2018-06-14] MEDS ORDERED: BENZONATATE 100 MG CAPLF PO PRN (19:40)
[2018-06-14] MEDS ORDERED: ONDANSETRON 4 MG/2 ML VIAL IVP PRN (19:40)
[2018-06-14 22:00] VITALS: BP 151/97
[2018-06-15] MEDS: ALBUTEROL 0.083% 2.5 MG/3 ML NEBU INH SCH ×3 (01:00→13:00)
[2018-06-15] MEDS: IPRATROPIUM 0.02% 0.5 MG/2.5 ML NEBU INH SCH ×3 (01:00→13:00)
[2018-06-15 03:24] LABS: CREATINE KINASE MB 1.9 ng/mL (0-3.6)
[2018-06-15 04:00] VITALS: BP 150/84
[2018-06-15 08:00] VITALS: BP 141/70
[2018-06-15] MEDS ORDERED: ASPIRIN 81 MG TAB.CHEW PO SCH (09:00)
[2018-06-15] MEDS ORDERED: ENOXAPARIN 40 MG/0.4 ML SYR SUBQ SCH (09:00)
[2018-06-15 09:03] LABS: WHITE BLOOD COUNT (AUTO) 5.9 K/uL (4.8-10.8)
[2018-06-15 09:04] LABS: HEMOGLOBIN 12.2 g/dL (12.0-18.0)
[2018-06-15 09:06] LABS: EOSINOPHILS % (AUTO) 0.1 % (0.0-4.0); HEMATOCRIT 36.6 % (36-52); LYMPHOCYTES % (AUTO) 12.5 % (20.5-51.1); MEAN CORPUSCULAR HEMOGLOBIN 29 pg (27-31); MEAN CORPUSCULAR HGB CONC 33 g/dL (33-37); MEAN CORPUSCULAR VOLUME 87.3 fL (80-94); MONOCYTES % (AUTO) 1.7 % (1.7-9.3); NEUTROPHILS % (AUTO) 84.7 % (42.2-75.2); PLATELET COUNT (AUTO) 342 K/uL (140-450); RED CELL DISTRIBUTION WIDTH 13.1 % (11.6-13.7)
[2018-06-15 09:51] LABS: ALBUMIN 3.1 g/dL (3.4-5.0); ANION GAP 14.7 (8-16); CARBON DIOXIDE 23.9 mmol/L (21-32); MAGNESIUM 1.8 mg/dL (1.8-2.4); POTASSIUM 3.6 mmol/L (3.5-5.1); TOTAL BILIRUBIN 0.3 mg/dL (0.0-1.0)
[2018-06-15 12:00] VITALS: BP 120/66
[2018-06-15] MEDS ORDERED: methylPREDNISolone SS 125 MG/2 ML VIAL IVP SCH (13:00)
[2018-06-15 14:32] LABS: BARBITURATE, URINE NEG. ng/ml (NEG <=200); BENZODIAZEPINE, URINE NEG. ng/mL (NEG <=200); CANNABINOID, URINE NEG. ng/mL (NEG <=50); COCAINE, URINE NEG. ng/mL (NEG <=300); OPIATE, URINE NEG. ng/mL (NEG <=2000); PHENCYCLIDINE SCREEN,URINE NEG. ng/mL (NEG <=25)
[2018-06-15] MEDS ORDERED: ALBU1SPR IH (15:18)
[2018-06-15] MEDS ORDERED: SPIMDI INH (15:18)
[2018-06-15 16:00] VITALS: BP 121/66
[2018-06-15 16:36] LABS: CREATINE KINASE MB 1.4 ng/mL (0-3.6)
[2018-06-15] MEDS ORDERED: LEVOFLOXACIN 500 MG/D5W PREMIX 100 ML IV SCH (18:00)
== END 2018-06-15 18:00 | disposition home or self-care (01) | DRG 191 ==
LOC: MED 15:18 → MTU 19:45 → UNDODEPER 20:12
PROVIDERS: ADMIT Hospitalist; ATTEND Hospitalist
DX: J44.1 Chronic obstructive pulmonary disease with (acute) exacerbation (principal); E44.0 Moderate protein-calorie malnutrition; F17.210 Nicotine dependence, cigarettes, uncomplicated; Z59.0 Homelessness; F15.10 Other stimulant abuse, uncomplicated; Z88.5 Allergy status to narcotic agent
CPT/HCPCS: 36415; 71045; 71046; 80053; 80305; 82550; 82553; 83735; 83880; 84484; 85025; 85610; 85730; 87081; 93005; 94640; 96365; 96375; 99285; J0696; J1650; J1885; J2930; J7060; J7613; J7644

== ENCOUNTER 2018-08-12 20:46 | Emergency (ER) | payer OTHER ==
[~2018-08-12] VITALS: Ht 160 cm; Wt 59.0 kg
[~2018-08-12 20:46] MED LIST changes: +ALBU1SPR IH; -LEVO500T2 PO; -PRED10TA5 PO; +SPIMDI INH
[2018-08-12 20:47] VITALS: BP 139/77
--- NOTE | 2018-08-12 20:48 | NUR ---
PT BIBA WITH C/O ALOC. PT REQUESTED TO COME IN DUE TO NOT FEELING HE WAS RIGHT IN HIS HEAD. APON ASSESSMENT. PT IS A/O X 4. PT STATED HE HAS SOME MILD WEAKNESS IN HIS MIND. PT STATED HE FEELS SAFE HERE AND DENIES WANTING TO HURT HIMSELF. PT LUNGS ARE CLEAR BILAT. DENIES ABDOMINAL PAIN. DENIES N/V/D. PT ADMITS TO DRIKING ALCOHOL, HX OF DRUGS AND SMOKES. PT HAS HX OF ASTHMA, HTN AND COPD. PT HAS ALLERGIES TO CODEINE. SKIN IS PINK/WARM/DRY;PATIENT STATES PAIN OF 0/10 AT THIS TIME; VSS; PATIENT POSITIONED FOR COMFORT; HOB ELEVATED; BEDRAILS UP X2; BED DOWN. ER MD MADE AWARE OF PT STATUS.
--- NOTE | 2018-08-12 20:52 | NUR ---
PT XIMENA TO ED BED 4, ACCUCHECK TAKEN. PT XIMENA STATES HE DOESNT REMEMBER THE PAST COUPLE OF HOURS. NO OTHER COMPLAINTS. AMBULANCE FOUND HIM A/OX4, A/OX4 ON ARRIVAL. ACCUCHECK 97. DENIES CP/SOB
--- NOTE | 2018-08-12 21:55 | NUR ---
EKG PERFORMED AT BEDSIDE. PT COVERED IN GOWN DURING PROCEDURE. NORMAL SINUS RHYTHM
--- NOTE | 2018-08-12 22:10 | NUR ---
PT IS NOT ABLE TO GO TO THE RESTROOM TO GIVE URINE. PT REFUSED STRAIGHT CATH. MADE AWARE.
[2018-08-12 22:19] LABS: HEMATOCRIT 36.1 % (36-52); RED BLOOD CELL COUNT(AUTO) 4.09 MIL/uL (4.20-6.10); WHITE BLOOD COUNT (AUTO) 9.2 K/uL (4.8-10.8)
[2018-08-12 22:20] LABS: EOSINOPHILS % (AUTO) 2.6 % (0.0-4.0); LYMPHOCYTES % (AUTO) 21.6 % (20.5-51.1); MEAN CORPUSCULAR HEMOGLOBIN 29 pg (27-31); MEAN CORPUSCULAR HGB CONC 33 g/dL (33-37); MEAN CORPUSCULAR VOLUME 88.1 fL (80-94); MONOCYTES % (AUTO) 8.8 % (1.7-9.3); NEUTROPHILS % (AUTO) 66.1 % (42.2-75.2); PLATELET COUNT (AUTO) 383 K/uL (140-450); RED CELL DISTRIBUTION WIDTH 13.8 % (11.6-13.7)
[2018-08-12 22:21] LABS: BASOPHILS # (AUTO) 0.1 K/uL (0.00-0.22); BASOPHILS % (AUTO) 0.9 % (0.0-2.0); EOSINOPHILS # (AUTO) 0.2 K/uL (0-0.4); MONOCYTES # (AUTO) 0.8 K/uL (0.8-1.0); NEUTROPHILS # (AUTO) 6.1 K/uL (1.8-7.7)
--- NOTE | 2018-08-12 23:00 | NUR ---
PT SITTING UP IN BED, VITALS STABLE.
[2018-08-12 23:27] LABS: ANION GAP 9.7 (8-16); CARBON DIOXIDE 29.1 mmol/L (21-32); CHLORIDE 103 mmol/L (98-107); CREATININE 1.1 mg/dL (0.7-1.3); GFR ARICAN-AMERICAN 86 mL/min (>90); GLUCOSE 111 mg/dL (74-106); POTASSIUM 3.8 mmol/L (3.5-5.1); SODIUM SERUM 138 mmol/L (136-145); UREA NITROGEN, BLOOD 23 mg/dL (7-18)
[2018-08-12 23:34] LABS: ALBUMIN 3.2 g/dL (3.4-5.0); ASPARTATE AMINOTRANSFERASE 61 U/L (15-37); TOTAL BILIRUBIN 0.4 mg/dL (0.0-1.0)
[2018-08-12 23:35] LABS: ACETAMINOPHEN < 0.5 ug/ml (10-30); SALICYLATE < 2.8 mg/dL (2.8-20.0)
[2018-08-13 00:05] LABS: CKMB RELATIVE INDEX 0.8 (0.0-2.5); CREATINE KINASE MB 5.1 ng/mL (0-3.6)
--- NOTE | 2018-08-13 02:30 | NUR ---
pt is sleeping vitals stable. comfort measures offered pt tolerated well.
[2018-08-13 05:15] VITALS: BP 141/65
== END 2018-08-13 05:15 | disposition home or self-care (01) ==
LOC: MED 20:46
DX: R41.3 Other amnesia (principal); J44.9 Chronic obstructive pulmonary disease, unspecified; I10 Essential (primary) hypertension; F17.200 Nicotine dependence, unspecified, uncomplicated; Z88.6 Allergy status to analgesic agent; Z79.899 Other long term (current) drug therapy
CPT/HCPCS: 36415; 70450; 71045; 80053; 82550; 82553; 84484; 85025; 93005; 99285; G0480; G0482

== ENCOUNTER 2018-09-16 12:10 | Inpatient (IN) | payer OTHER ==
[~2018-09-16] VITALS: Ht 175.3 cm; Wt 74.8 kg
[2018-09-16 12:16] VITALS: BP 133/84
[2018-09-16] MEDS ORDERED: IPRATROPIUM 0.02% 0.5 MG/2.5 ML NEBU INH ONE (13:00)
[2018-09-16] MEDS ORDERED: predniSONE 20 MG TAB PO ONE (13:00)
[2018-09-16] MEDS ORDERED: ALBUTEROL 0.083% 2.5 MG/3 ML NEBU INH ONE (13:00)
[2018-09-16] MEDS ORDERED: NACL 0.9% 1,000 ML IV ONE (13:35)
[2018-09-16] MEDS ORDERED: LEVOFLOXACIN 500 MG/D5W PREMIX 100 ML IV ONE (13:35)
[2018-09-16] MEDS ORDERED: methylPREDNISolone SS 125 MG/2 ML VIAL IVP ONE (13:35)
[2018-09-16 14:08] LABS: BASOPHILS # (AUTO) 0.1 K/uL (0.00-0.22); BASOPHILS % (AUTO) 0.7 % (0.0-2.0); EOSINOPHILS # (AUTO) 0.1 K/uL (0-0.4); EOSINOPHILS % (AUTO) 0.6 % (0.0-4.0); HEMATOCRIT 36.4 % (36-52); HEMOGLOBIN 11.6 g/dL (12.0-18.0); LYMPHOCYTES # (AUTO) 2.6 K/uL (2.0-11.5); LYMPHOCYTES % (AUTO) 23.4 % (20.5-51.1); MEAN CORPUSCULAR HEMOGLOBIN 28 pg (27-31); MEAN CORPUSCULAR HGB CONC 32 g/dL (33-37); MEAN CORPUSCULAR VOLUME 86.9 fL (80-94); MONOCYTES # (AUTO) 0.9 K/uL (0.8-1.0); MONOCYTES % (AUTO) 7.9 % (1.7-9.3); NEUTROPHILS # (AUTO) 7.6 K/uL (1.8-7.7); NEUTROPHILS % (AUTO) 67.4 % (42.2-75.2); PLATELET COUNT (AUTO) 434 K/uL (140-450); RED BLOOD CELL COUNT(AUTO) 4.18 MIL/uL (4.20-6.10); RED CELL DISTRIBUTION WIDTH 15.6 % (11.6-13.7); WHITE BLOOD COUNT (AUTO) 11.3 K/uL (4.8-10.8)
[2018-09-16 14:28] LABS: ALBUMIN 2.7 g/dL (3.4-5.0); ANION GAP 9.8 (8-16); CARBON DIOXIDE 27.4 mmol/L (21-32); CREATININE 1.1 mg/dL (0.7-1.3); POTASSIUM 4.2 mmol/L (3.5-5.1); TOTAL BILIRUBIN 0.4 mg/dL (0.0-1.0)
[2018-09-16 14:43] LABS: PROTHROMBIN TIME 9.5 secs (10.8-13.4)
[2018-09-16] MEDS ORDERED: ASPIRIN 81 MG TAB.CHEW PO ONE (15:10)
[2018-09-16] MEDS ORDERED: ONDANSETRON 4 MG/2 ML VIAL IVP PRN (15:15)
[2018-09-16] MEDS ORDERED: HYDROcodone/APAP 5/325 MG 1 TAB TAB PO PRN (15:15)
[2018-09-16] MEDS ORDERED: ACETAMINOPHEN 325 MG TAB PO PRN (15:15)
[2018-09-16 15:24] LABS: APPEARANCE,URINE CLEAR (CLEAR); COLOR,URINE YELLOW (YELLOW)
[2018-09-16 15:25] LABS: BILIRUBIN,URINE NEGATIVE (NEGATIVE); BLOOD, URINE NEGATIVE (NEGATIVE); LEUKOCYTE ESTERASE ,URINE NEGATIVE (NEGATIVE); NITRITE, URINE NEGATIVE (NEGATIVE); UGLUCOSE NEGATIVE (NEGATIVE)
[2018-09-16] MEDS ORDERED: ZOLPIDEM 5 MG TAB PO PRN (15:25)
[2018-09-16] MEDS ORDERED: LORazepam 1 MG TAB PO PRN (15:25)
[2018-09-16 15:45] LABS: BARBITURATE, URINE NEG. ng/ml (NEG <=200); BENZODIAZEPINE, URINE NEG. ng/mL (NEG <=200); CANNABINOID, URINE NEG. ng/mL (NEG <=50); COCAINE, URINE NEG. ng/mL (NEG <=300); OPIATE, URINE NEG. ng/mL (NEG <=2000); PHENCYCLIDINE SCREEN,URINE NEG. ng/mL (NEG <=25)
[2018-09-16 16:00] VITALS: BP 169/106
[2018-09-16] MEDS ORDERED: cloNIDine 0.1 MG TAB PO PRN (16:50)
[2018-09-16 16:55] VITALS: BP 146/85
[2018-09-16] MEDS: ALBUTEROL 0.083% 2.5 MG/3 ML NEBU INH PRN (17:16)
[2018-09-16] MEDS: IPRATROPIUM 0.02% 0.5 MG/2.5 ML NEBU INH PRN (17:16)
[2018-09-16 20:00] VITALS: BP 146/83
[2018-09-17] VITALS: BP 128/76
[2018-09-17 04:00] VITALS: BP 142/88
[2018-09-17 06:58] LABS: BASOPHILS % (AUTO) 0.2 % (0.0-2.0); HEMATOCRIT 35.3 % (36-52); HEMOGLOBIN 11.4 g/dL (12.0-18.0); LYMPHOCYTES # (AUTO) 1.5 K/uL (2.0-11.5); LYMPHOCYTES % (AUTO) 12.5 % (20.5-51.1); MEAN CORPUSCULAR HEMOGLOBIN 28 pg (27-31); MEAN CORPUSCULAR HGB CONC 32 g/dL (33-37); MEAN CORPUSCULAR VOLUME 86.9 fL (80-94); MONOCYTES # (AUTO) 0.8 K/uL (0.8-1.0); MONOCYTES % (AUTO) 6.7 % (1.7-9.3); NEUTROPHILS # (AUTO) 9.7 K/uL (1.8-7.7); NEUTROPHILS % (AUTO) 80.6 % (42.2-75.2); PLATELET COUNT (AUTO) 427 K/uL (140-450); RED BLOOD CELL COUNT(AUTO) 4.06 MIL/uL (4.20-6.10); RED CELL DISTRIBUTION WIDTH 15.1 % (11.6-13.7); WHITE BLOOD COUNT (AUTO) 12.1 K/uL (4.8-10.8)
[2018-09-17] MEDS: IPRATROPIUM 0.02% 0.5 MG/2.5 ML NEBU INH PRN ×4 (07:26→22:00)
[2018-09-17] MEDS: ALBUTEROL 0.083% 2.5 MG/3 ML NEBU INH PRN ×4 (07:26→22:00)
[2018-09-17 07:35] LABS: ALBUMIN 2.5 g/dL (3.4-5.0); ANION GAP 12.1 (8-16); CARBON DIOXIDE 25.4 mmol/L (21-32); POTASSIUM 4.5 mmol/L (3.5-5.1); TOTAL BILIRUBIN 0.4 mg/dL (0.0-1.0)
[2018-09-17 08:00] VITALS: BP 131/71
[2018-09-17] MEDS: LEVOFLOXACIN 500 MG/D5W PREMIX 100 ML IV SCH (08:51)
[2018-09-17] MEDS: DOCUSATE SODIUM 100 MG GELCAP PO SCH (08:51)
[2018-09-17] MEDS: ENOXAPARIN 40 MG/0.4 ML SYR SUBQ SCH (08:54)
[2018-09-17] MEDS: NICOTINE TRANSD SYS 21 MG/24 HR PATCH TD SCH (09:04)
[2018-09-17 12:00] VITALS: BP 123/81
[2018-09-17 16:00] VITALS: BP 120/81
[2018-09-17 19:38] VITALS: BP 150/79
[2018-09-18] VITALS: BP 134/82
[2018-09-18 04:00] VITALS: BP 162/114
[2018-09-18] MEDS: IPRATROPIUM 0.02% 0.5 MG/2.5 ML NEBU INH PRN ×2 (05:37→08:13)
[2018-09-18] MEDS: ALBUTEROL 0.083% 2.5 MG/3 ML NEBU INH PRN ×2 (05:37→08:13)
[2018-09-18 07:26] LABS: BASOPHILS # (AUTO) 0.1 K/uL (0.00-0.22); BASOPHILS % (AUTO) 0.6 % (0.0-2.0); EOSINOPHILS # (AUTO) 0.1 K/uL (0-0.4); EOSINOPHILS % (AUTO) 0.5 % (0.0-4.0); HEMATOCRIT 37.2 % (36-52); LYMPHOCYTES # (AUTO) 2.4 K/uL (2.0-11.5); LYMPHOCYTES % (AUTO) 17.3 % (20.5-51.1); MEAN CORPUSCULAR HEMOGLOBIN 29 pg (27-31); MEAN CORPUSCULAR HGB CONC 32 g/dL (33-37); MEAN CORPUSCULAR VOLUME 88.6 fL (80-94); MONOCYTES # (AUTO) 0.8 K/uL (0.8-1.0); MONOCYTES % (AUTO) 5.8 % (1.7-9.3); NEUTROPHILS # (AUTO) 10.4 K/uL (1.8-7.7); NEUTROPHILS % (AUTO) 75.8 % (42.2-75.2); PLATELET COUNT (AUTO) 462 K/uL (140-450); RED CELL DISTRIBUTION WIDTH 15.9 % (11.6-13.7); WHITE BLOOD COUNT (AUTO) 13.7 K/uL (4.8-10.8)
[2018-09-18 07:45] LABS: ALBUMIN 2.8 g/dL (3.4-5.0); ANION GAP 10.5 (8-16); CARBON DIOXIDE 27.7 mmol/L (21-32); POTASSIUM 4.2 mmol/L (3.5-5.1); TOTAL BILIRUBIN 0.3 mg/dL (0.0-1.0)
[2018-09-18 08:00] VITALS: BP 151/86
[2018-09-18] MEDS: LEVOFLOXACIN 500 MG/D5W PREMIX 100 ML IV SCH (08:19)
[2018-09-18] MEDS: NICOTINE TRANSD SYS 21 MG/24 HR PATCH TD SCH (08:19)
[2018-09-18] MEDS: DOCUSATE SODIUM 100 MG GELCAP PO SCH (08:19)
[2018-09-18] MEDS: ENOXAPARIN 40 MG/0.4 ML SYR SUBQ SCH (08:28)
[2018-09-18 12:00] VITALS: BP 136/69
[2018-09-18] MEDS ORDERED: PRED20TA5 PO (14:22)
[2018-09-18] MEDS ORDERED: LEVO250T71 PO (14:23)
[2018-09-18] MEDS ORDERED: NICO1PAT16 TD (14:24)
[2018-09-18] MEDS ORDERED: ALBU1SPR IH (14:26)
== END 2018-09-18 16:00 | disposition home or self-care (01) | DRG 291 ==
LOC: MED 12:10 → MTU 15:22
PROVIDERS: ADMIT Hospitalist; ATTEND Hospitalist
DX: I13.0 Hypertensive heart and chronic kidney disease with heart failure and stage 1 through stage 4 chronic kidney disease, or unspecified chronic kidney disease (principal); J18.9 Pneumonia, unspecified organism; I50.43 Acute on chronic combined systolic (congestive) and diastolic (congestive) heart failure; J44.1 Chronic obstructive pulmonary disease with (acute) exacerbation; R65.10 Systemic inflammatory response syndrome (SIRS) of non-infectious origin without acute organ dysfunction; I24.9 Acute ischemic heart disease, unspecified; J44.0 Chronic obstructive pulmonary disease with (acute) lower respiratory infection; F17.210 Nicotine dependence, cigarettes, uncomplicated; F15.10 Other stimulant abuse, uncomplicated; N18.9 Chronic kidney disease, unspecified; Z88.5 Allergy status to narcotic agent; Z71.51 Drug abuse counseling and surveillance of drug abuser; Z59.0 Homelessness
CPT/HCPCS: 36415; 36600; 71045; 80053; 80305; 81003; 82803; 83605; 83880; 84484; 85025; 85610; 85730; 87040; 87070; 87081; 87086; 87205; 93005; 94640; 96365; 96375; 99291; J1650; J1956; J2930; J7030; J7512; J7613; J7644; Q0092

== ENCOUNTER 2018-11-15 07:00 | Inpatient (IN) | payer OTHER ==
[~2018-11-15] VITALS: Ht 175.3 cm; Wt 76.2 kg
[2018-11-15] VITALS (7 sets, daily range): BP systolic 124–148; BP diastolic 79–103
[~2018-11-15 07:00] MED LIST changes: -ALBU0.0912 INH; -ATRN INH; +LEVO250T71 PO; +NICO1PAT16 TD; +PRED20TA5 PO; -PRON INH; -SPIMDI INH
--- NOTE | 2018-11-15 07:04 | NUR ---
PT BIB AMBULANCE FOR N/V, ABD PAIN, AND DIARRHEA X3 DAYS. PT REPORTS ABD PAIN AT 8/10. ABD IS FLAT, NON-TENDER WITH BOWEL SOUNDS ACTIVE X4 QUADRANTS. PT REPORTS DIARRHEA Q3 HOURS. PT REPORTS PRODUCTIVE COUGH. RR SYMETRICAL AND NON LABORED. AMBULANCE STATED THAT PT VOMITTED JUST BEFORE GETTING HERE. MED HX: COPD, ASTHMA, AND BRONCHITIS
--- NOTE | 2018-11-15 07:12 | NUR ---
Pt. Resting in bed VSS. Pt. states " I have food poisining, I ate some cakes from [employer] out of the trash about 3 days ago and ever since then my stomach has hurt and I have been vomiting". Pt is cooperative and calm at this time.
[2018-11-15] MEDS ORDERED: NACL 0.9% 1,000 ML IV SCH ×2 (07:19→13:30)
[2018-11-15] MEDS ORDERED: ONDANSETRON 4 MG/2 ML VIAL IVP ONE (07:20)
--- NOTE | 2018-11-15 07:29 | NUR ---
Patient being evaluated by physician at bedside.
[2018-11-15] MEDS ORDERED: ALBUTEROL SULFATE/IPRATROPIU 3 ML SOL IH ONE (07:35)
--- NOTE | 2018-11-15 07:50 | NUR ---
PT. PROVIDED WITH URINE CUP, UNABLE TO PROVIDE SAMPLE AT THIS TIME. WILL CONTINUE TO MONITOR.
--- NOTE | 2018-11-15 07:54 | NUR ---
PT TAKEN TO CT IN [place]
--- NOTE | 2018-11-15 08:17 | NUR ---
RT AT BEDSIDE
[2018-11-15 08:28] LABS: BASOPHILS % (AUTO) 0.2 % (0.0-2.0); HEMOGLOBIN 12.5 g/dL (12.0-18.0); LYMPHOCYTES # (AUTO) 1.3 K/uL (2.0-11.5); LYMPHOCYTES % (AUTO) 11.6 % (20.5-51.1); MEAN CORPUSCULAR HEMOGLOBIN 27 pg (27-31); MEAN CORPUSCULAR HGB CONC 31 g/dL (33-37); MEAN CORPUSCULAR VOLUME 87.5 fL (80-94); MONOCYTES # (AUTO) 0.7 K/uL (0.8-1.0); MONOCYTES % (AUTO) 6.2 % (1.7-9.3); NEUTROPHILS # (AUTO) 8.9 K/uL (1.8-7.7); PLATELET COUNT (AUTO) 341 K/uL (140-450); RED BLOOD CELL COUNT(AUTO) 4.58 MIL/uL (4.20-6.10); RED CELL DISTRIBUTION WIDTH 15.4 % (11.6-13.7); WHITE BLOOD COUNT (AUTO) 10.8 K/uL (4.8-10.8)
[2018-11-15 08:43] LABS: ANION GAP 18.4 (8-16); CARBON DIOXIDE 24.1 mmol/L (21-32); CREATININE 1.9 mg/dL (0.7-1.3); POTASSIUM 4.5 mmol/L (3.5-5.1)
--- NOTE | 2018-11-15 09:05 | NUR ---
HOSSEIN CALLED FROM LAB TO REPORT LACTIC ACID 2.4 . ER MD [place] MADE AWARE.
[2018-11-15] MEDS ORDERED: NACL 0.9% 750 ML IV ONE (09:10)
[2018-11-15] MEDS ORDERED: FUROSEMIDE 40 MG/4 ML VIAL IVP ONE (09:10)
[2018-11-15 09:28] LABS: ALBUMIN 3.3 g/dL (3.4-5.0); TOTAL BILIRUBIN 1.2 mg/dL (0.0-1.0)
[2018-11-15] MEDS ORDERED: ASPIRIN 81 MG TAB.CHEW PO ONE (09:30)
--- NOTE | 2018-11-15 09:31 | NUR ---
PT. PROVIDED WITH APPLE JUICE AND PUDDING, VSS. HOB ELEVATED. RR EVEN AND UNLABORED. DRY COUGH NOTED. WILL CONTINUE TO MONITOR.
[2018-11-15 09:32] LABS: ACETAMINOPHEN < 0.5 ug/ml (10-30); SALICYLATE < 2.8 mg/dL (2.8-20.0)
[2018-11-15 09:37] LABS: PROTHROMBIN TIME 11.1 secs (10.8-13.4)
--- NOTE | 2018-11-15 10:12 | NUR ---
LAB AT BEDSIDE AT THIS TIME
[2018-11-15 10:28] LABS: APPEARANCE,URINE CLEAR (CLEAR); BILIRUBIN,URINE NEGATIVE (NEGATIVE); BLOOD, URINE NEGATIVE (NEGATIVE); COLOR,URINE YELLOW (YELLOW); LEUKOCYTE ESTERASE ,URINE 1+ (NEGATIVE); NITRITE, URINE NEGATIVE (NEGATIVE); PH,URINE 5.5 (5.0-9.0); UGLUCOSE NEGATIVE (NEGATIVE)
[2018-11-15 10:39] LABS: RBC,URINE NONE SEEN /HPF (0-5); WBC,URINE 6-15 (FEW) /HPF (0-5)
--- NOTE | 2018-11-15 11:25 | NUR ---
PT TAKEN TO ICU BY ASHLEY PARR AND EMT THOMAS
--- NOTE | 2018-11-15 11:30 | NUR ---
RECEIVED PT TRANSFERRED FROM ER VIA GURNEY TO ICU BED 3, OBTAINED REPORT AT BEDSIDE FROM ASHLEY PARR, PT IS AAOX4, SLURRED SPEECH NOTED, ABLE TO FOLLOW COMMANDS AND MAKE NEEDS KNOWN, NO S/S OF DISTRESS, RHONCHI LUNG SOUNDS TO UPPER CHEST AND INTERMITTENT COUGH NOTED, ON RA, O2 SAT 93%, REFUSED OXYGEN, SR TO ST ON MATERIAL LOADER, C/O CHEST TIGHTNESS 2/10, TOLERABLE, +2 PITTING EDEMA NOTED TO BLE, DENIES ABDOMINAL PAIN, STATED HUNGRY, WOULD LIKE TO HAVE SOMETHING TO EAT, PT IS NPO AT THIS TIME. CONTINENT WITH B&B'S, ABLE TO MOVE ALL EXTREMITIES. SKIN IS WARM AND DRY TO TOUCH, NO OPEN WOUND PRESENT, IV SITE TO RIGHT FOREARM, 20 GA, PATENT AND RUNNING NS AT 75 ML/HR. VSS, EMPLANED POC TO PATIENT, PATIENT VERBALIZED UNDERSTANDING, HOB ELEVATED 30 DEGREES, SAFETY MEASURE IN PLACE, CALL LIGHT WITHIN REACH, WILL CONTINUE TO MONITOR.
--- NOTE | 2018-11-15 11:32 | NUR ---
Patient will be admitted to care of DR. PATTON . Admited to ICU . Will go to room #3. Belongings list completed. Report to ASHLEY JOHNSTON .
[2018-11-15 12:15] LABS: BARBITURATE, URINE NEG. ng/ml (NEG <=200); BENZODIAZEPINE, URINE NEG. ng/mL (NEG <=200); CANNABINOID, URINE NEG. ng/mL (NEG <=50); COCAINE, URINE NEG. ng/mL (NEG <=300); OPIATE, URINE NEG. ng/mL (NEG <=2000); PHENCYCLIDINE SCREEN,URINE NEG. ng/mL (NEG <=25)
[2018-11-15] MEDS ORDERED: HYDROcodone/APAP 5/325 MG 1 TAB TAB PO PRN (13:45)
[2018-11-15] MEDS ORDERED: ALBUTEROL 0.083% 2.5 MG/3 ML NEBU IH PRN (13:45)
[2018-11-15] MEDS ORDERED: ONDANSETRON 4 MG/2 ML VIAL IVP PRN (13:45)
[2018-11-15] MEDS ORDERED: ACETAMINOPHEN 325 MG TAB PO PRN (13:45)
[2018-11-15] MEDS ORDERED: hePARIN / DEXT 5% PREMIX 250 ML IV SCH (14:00)
[2018-11-15] MEDS ORDERED: HEPARIN PER PHARMACY MC PRN (14:00)
--- NOTE | 2018-11-15 14:00 | NUR ---
DR. PATTON CAME IN TO SEE PATIENT AT BEDSIDE, WILL FOLLOW UP WITH NEW ORDERS.
[2018-11-15] MEDS ORDERED: metroNIDAZOLE 500 MG/NS PREMIX 100 ML IV SCH (14:15)
--- NOTE | 2018-11-15 14:23 | NUR ---
PT STATED HUNGRY, OK TO EAT PER DR. PATTON, FOOD OFFERED, NO S/S OF DISTRESS, DENIES CHEST PAIN, VSS.
[2018-11-15] MEDS: NICOTINE TRANSD SYS 21 MG/24 HR PATCH TD SCH (14:45)
[2018-11-15] MEDS: hePARIN / DEXT 5% PREMIX 250 ML IV SCH ×2 (14:50→22:44)
--- NOTE | 2018-11-15 15:00 | NUR ---
NO S/S OF DISTRESS, DENIES PAIN, VSS, HEPARIN DRIP STARTED.
--- NOTE | 2018-11-15 16:00 | NUR ---
PT IS RESTING IN BED, VSS, DENIES PAIN, TALKING TO HIMSELF, PM CARE AND ORAL CARE OFFERED, PT TOOK A BATH AT BEDSIDE, WILL CONTINUE TO MONITOR.
--- NOTE | 2018-11-15 18:00 | NUR ---
PT ATE DINNER, NO S/S OF DISTRESS, DENIES PAIN, STATED COLD, TEMP 98.5F, VSS.
[2018-11-15] MEDS: PIPER/TAZO 2.25GM/D5W PREMIX 50 ML IV SCH ×2 (18:02→23:35)
[2018-11-15] MEDS ORDERED: ALBUTEROL 0.083% 2.5 MG/3 ML NEBU IH SCH (19:00)
[2018-11-15] MEDS ORDERED: IPRATROPIUM 0.02% 0.5 MG/2.5 ML NEBU IH SCH (19:00)
--- NOTE | 2018-11-15 19:10 | NUR ---
RECEIVED REPORT FROM AM SHIFT. PT AO X4. ABLE TO VERBALIZE NEEDS. FOLLOWS COMMANDS. AFEBRILE. MUMBLING SPEECH PATTERN. SR-ST ON MONITOR. WHEEZING BILATERALLY NOTED. ON ROOM AIR. PRODUCTIVE COUGH NOTED. ON CARDIAC DIET. ABD SOFT NONTENDER. NO C/O NVD. IV SITE RIGHT FA 20G. BED IN LOWEST POSITION. CALL LIGHT WITHIN REACH.
--- NOTE | 2018-11-15 19:20 | NUR ---
REPORT GIVEN TO DRUM PRINTER RN AT BEDSIDE FOR CONTINUE OF CARE.
--- NOTE | 2018-11-15 19:53 | NUR ---
PT IS SOB, WHEEZING LUNG SOUNDS NOTED, BREATHING TREATMENT GIVEN BY RT, DR. PATTON PAGEIris AND CALLED BACK STATED WILL PUT IN NEW ORDERS WHEN HE GET ON THE COMPUTER.
[2018-11-15] MEDS ORDERED: ALBUTEROL SULFATE/IPRATROPIU 3 ML SOL IH PRN (20:05)
--- NOTE | 2018-11-15 20:09 | NUR ---
RECEIVED NEW ORDERS FROM DR. PATTON. ORDER IS TO STOP FLUIDS AND ADMINISTER LASIX IVP. WILL CONTINUE TO MONITOR.
[2018-11-15] MEDS: methylPREDNISolone SS 40 MG/ML VIAL IVP SCH ×2 (20:33→23:34)
[2018-11-15] MEDS: FUROSEMIDE 40 MG/4 ML VIAL IVP SCH (20:34)
[2018-11-15] MEDS: metroNIDAZOLE 500 MG/NS PREMIX 100 ML IV SCH (20:34)
[2018-11-15] MEDS ORDERED: methylPREDNISolone SS 40 MG/ML VIAL ONE (20:35)
[2018-11-15] MEDS ORDERED: PIPERACILLIN/TAZOBACTAM 2.25 GM in DEXTROSE 5% 50 ML IV SCH (21:00)
--- NOTE | 2018-11-15 21:20 | NUR ---
RT AT BEDSIDE AT THIS TIME WITH BREATHING TX. LAB AT BEDSIDE TO DRAW PTT BLOOD DRAW.
--- NOTE | 2018-11-15 22:45 | NUR ---
RECEIVED PTT RESULT OF 31.4. ADMINISTERED BOLUS OF 3800 UNITS AND ADJUSTED DRIP TO 1050 UNITS PER PROTOCOL.
[2018-11-16] VITALS (10 sets, daily range): BP systolic 121–150; BP diastolic 68–98
--- NOTE | 2018-11-16 00:46 | NUR ---
PT HAD LARGE BM AT THIS TIME. STOOL FORMED.
[2018-11-16] MEDS: ALBUTEROL SULFATE/IPRATROPIU 3 ML SOL IH SCH ×4 (01:15→20:02)
--- NOTE | 2018-11-16 01:26 | NUR ---
RT AT BEDSIDE AT THIS TIME
--- NOTE | 2018-11-16 03:03 | NUR ---
LAB AT BEDSIDE AT THIS TIME FOR PTT DRAW.
[2018-11-16] MEDS: metroNIDAZOLE 500 MG/NS PREMIX 100 ML IV SCH ×3 (04:16→20:42)
[2018-11-16] MEDS: FUROSEMIDE 40 MG/4 ML VIAL IVP SCH ×3 (04:17→20:42)
--- NOTE | 2018-11-16 04:29 | NUR ---
RECENT PTT RESULTS 37.0, ADMINISTERED BOLUS 1,900 UNITS AND TITRATED HEPARIN TO 950 UNITS/HR.
--- NOTE | 2018-11-16 04:30 | NUR ---
TITRATED HEPARIN DRIP UP TO 1200 UNITS/HR
[2018-11-16] MEDS: hePARIN / DEXT 5% PREMIX 250 ML IV SCH ×2 (05:45→17:45)
[2018-11-16] MEDS: PIPER/TAZO 2.25GM/D5W PREMIX 50 ML IV SCH ×4 (05:51→23:17)
[2018-11-16] MEDS: methylPREDNISolone SS 40 MG/ML VIAL IVP SCH ×4 (05:51→23:17)
[2018-11-16 05:59] LABS: HEMATOCRIT 35.7 % (36-52); HEMOGLOBIN 11.2 g/dL (12.0-18.0); LYMPHOCYTES # (AUTO) 0.4 K/uL (2.0-11.5); LYMPHOCYTES % (AUTO) 4.7 % (20.5-51.1); MEAN CORPUSCULAR HEMOGLOBIN 27 pg (27-31); MEAN CORPUSCULAR HGB CONC 31 g/dL (33-37); MEAN CORPUSCULAR VOLUME 86.7 fL (80-94); MONOCYTES # (AUTO) 0.1 K/uL (0.8-1.0); MONOCYTES % (AUTO) 1.1 % (1.7-9.3); NEUTROPHILS # (AUTO) 7.2 K/uL (1.8-7.7); NEUTROPHILS % (AUTO) 94.2 % (42.2-75.2); PLATELET COUNT (AUTO) 308 K/uL (140-450); RED BLOOD CELL COUNT(AUTO) 4.12 MIL/uL (4.20-6.10); RED CELL DISTRIBUTION WIDTH 15.5 % (11.6-13.7); WHITE BLOOD COUNT (AUTO) 7.6 K/uL (4.8-10.8)
[2018-11-16 06:19] LABS: CARBON DIOXIDE 25.1 mmol/L (21-32); CREATININE 1.8 mg/dL (0.7-1.3); POTASSIUM 4.1 mmol/L (3.5-5.1)
--- NOTE | 2018-11-16 06:20 | NUR ---
PT RESTING QUIETLY IN BED. CONTINUES TO MUMBLE TO SELF. WILL CONTINUE TO MONITOR.
[2018-11-16 06:22] LABS: MAGNESIUM 1.9 mg/dL (1.8-2.4); PHOSPHORUS 4.4 mg/dL (2.5-4.9)
--- NOTE | 2018-11-16 06:27 | NUR ---
PATIENT HAS BEEN SCREENED AND CATEGORIZED HIGH NUTRITION RISK. PATIENT WILL BE SEEN WITHIN 1-2 DAYS OF ADMISSION. 11/16/18-11/17/18 MAIRA MOREL MS, RDN
--- NOTE | 2018-11-16 07:10 | NUR ---
ENDORSED CARE TO INCOMING SHIFT FOR CONTINUITY OF CARE. BED IN LOWEST POSITION. CALL LIGHT WITHIN REACH
--- NOTE | 2018-11-16 07:13 | NUR ---
RECEIVED BEDSIDE REPORT FROM DIRECTOR FUNDS DEVELOPMENT RN, ADONAY, FOR CONTINUITY OF CARE. PATIENT IS AAOX4, ABLE TO MAKE NEEDS KNOWN AND FOLLOWS COMMANDS. SKIN IS INTACT, HE HAS PERIPHERAL IV SITE TO RFA, 20 GAUGE, ASYMPTOMATIC AND PATENT. HE IS ON HEPARIN DRIP AT 12 MLS. PATIENT IS ON ROOM AIR, BREATHING EVEN AND UNLABORED. SR ON MONITOR, DENIES PAIN, N, V, SOB AT THIS TIME. HOB IS 35 DEGREES, SAFETY PRECAUTIONS AND ALARMS ASSESSED AND REINFORCED. NO SIGNS OF DISTRESS NOTED, CALL LIGHT WITHIN REACH. WILL CONTINUE TO MONITOR.
--- NOTE | 2018-11-16 10:36 | NUR ---
NEUROLOGY TEACHER AT BEDSIDE FOR ECHOCARDIOGRAM. NO SIGNS OF DISTRESS AT THIS TIME. WILL CONTINUE TO MONITOR
--- NOTE | 2018-11-16 10:57 | NUR ---
PATIENT'S PTT IS 38.5, ADJUSTED HEPARIN DRIP AND ADMINISTERED BOLUS PER PROTOCOL. PATIENT TOLERATED WELL. DENIES ANY PAIN AT THIS TIME.
--- NOTE | 2018-11-16 11:03 | NUR ---
11/16/18 RD INITIAL ASSESSMENT COMPLETED PLEASE REFER TO NUTRITION ASSESSMENT UNDER CARE ACTIVITY FOR ESTIMATED NUTRITIONAL NEEDS. RD RECOMMENDATIONS: 1. CONTINUE ON CARDIAC DIET TOLERATED. 2. CONSULT RDN PRN. 3. RD WILL F/U 3-5 DAYS; MODERATE RISK. MAIRA MOREL MS, RDN
--- NOTE | 2018-11-16 12:15 | NUR ---
DR. PATTON IN TO SEE AND EXAMINE PATIENT, UPDATED ON PATIENT'S CONDITION. WILL FOLLOW UP ON ANY ORDERS.
[2018-11-16] MEDS: NICOTINE TRANSD SYS 21 MG/24 HR PATCH TD SCH (14:15)
--- NOTE | 2018-11-16 18:08 | NUR ---
PATIENT'S PTT IS 44.0, ADJUSTED HEPARIN DRIP AND ADMINISTERED BOLUS PER PROTOCOL. PATIENT TOLERATED WELL.
--- NOTE | 2018-11-16 18:26 | NUR ---
PATIENT DENIES ANY NAUSEA, VOMITING, SOB, OR PAIN AT THIS TIME. WILL CONTINUE TO MONITOR
--- NOTE | 2018-11-16 19:03 | NUR ---
DR. VEGA IN TO SEE AND EXAMINE PATIENT, UPDATED ON PATIENT'S CONDITION. RECEIVED ORDERS, WILL FOLLOW UP ON ANY ORDERS.
--- NOTE | 2018-11-16 19:15 | NUR ---
RECEIVED REPORT FROM AM SHIFT. PT AOX4. FOLLOWS COMMANDS. ABLE TO VERBALIZE NEEDS. ABLE TO TRACK MOVEMENTS. AFEBRILE. ON ROOM OUR. LUNG SOUNDS CLEAR BILAT. COUGHING INTERMITTENTLY. NONPRODUCTIVE. ST ON MONITOR. ON CARDIAC DIET. BOWEL SOUNDS ACTIVE X4 QUADRANTS. URINE CLEAR, YELLOW, NO FOUL ODOR. IV SITE TO R FA. 20G. SKIN INTACT. BED IN LOWEST POSITION. CALL LIGHT WITHIN REACH.
--- NOTE | 2018-11-16 19:18 | NUR ---
ENDORSED CONTINUITY OF CARE TO BASKETBALL ASSEMBLER RNCHAPIN. NO SIGNS OF DISTRESS AT THIS TIME
--- NOTE | 2018-11-16 19:30 | NUR ---
PATIENT DOWNGRADED TO MEDSURG STATUS PER DR. VEGA'S ORDER.
--- NOTE | 2018-11-16 19:47 | NUR ---
HEPARIN DRIP DISCONTINUED AT THIS TIME PER DR. VEGA'S ORDERS
--- NOTE | 2018-11-16 20:35 | NUR ---
RT AT BEDSIDE AT THIS TIME. NO SIGNS OF ACUTE DISTRESS NOTED.
--- NOTE | 2018-11-17 00:47 | NUR ---
PT RESTING QUIETLY. DENIES PAIN AT THIS TIME.
[2018-11-17] MEDS: ALBUTEROL SULFATE/IPRATROPIU 3 ML SOL IH SCH ×4 (01:29→19:46)
--- NOTE | 2018-11-17 02:22 | NUR ---
PT DENIES ANY PAIN. NO SOB. NO NVD NOTED. CONTINUES TO MUMBLE AND MAKE AUDIBLE SOUNDS. WILL CONTINUE TO MONITOR.
[2018-11-17 04:00] VITALS: BP 109/53
[2018-11-17] MEDS: metroNIDAZOLE 500 MG/NS PREMIX 100 ML IV SCH (04:25)
[2018-11-17] MEDS: FUROSEMIDE 40 MG/4 ML VIAL IVP SCH (04:25)
--- NOTE | 2018-11-17 04:50 | NUR ---
LAB AT BEDSIDE AT THIS TIME FOR AM DRAWS
[2018-11-17 05:09] LABS: HEMATOCRIT 34.1 % (36-52); HEMOGLOBIN 10.7 g/dL (12.0-18.0); MEAN CORPUSCULAR HEMOGLOBIN 27 pg (27-31); MEAN CORPUSCULAR HGB CONC 31 g/dL (33-37); MEAN CORPUSCULAR VOLUME 86.4 fL (80-94); PLATELET COUNT (AUTO) 330 K/uL (140-450); RED BLOOD CELL COUNT(AUTO) 3.94 MIL/uL (4.20-6.10); RED CELL DISTRIBUTION WIDTH 15.3 % (11.6-13.7); WHITE BLOOD COUNT (AUTO) 15.6 K/uL (4.8-10.8)
[2018-11-17] MEDS: methylPREDNISolone SS 40 MG/ML VIAL IVP SCH ×2 (05:33→11:25)
[2018-11-17] MEDS: PIPER/TAZO 2.25GM/D5W PREMIX 50 ML IV SCH ×2 (05:33→11:24)
--- NOTE | 2018-11-17 06:02 | NUR ---
PT REFUSED AM CARE AND ORAL CARE AT THIS TIME.
[2018-11-17 06:35] LABS: MAGNESIUM 1.8 mg/dL (1.8-2.4)
[2018-11-17 06:42] LABS: LYMPHOCYTES % (MANUAL) 5 % (20-46); MONOCYTES % (MANUAL) 2 % (5-12)
--- NOTE | 2018-11-17 06:49 | NUR ---
RT AT BEDSIDE AT THIS TIME.
--- NOTE | 2018-11-17 07:03 | NUR ---
LAB RESULTS FOR TROPONIN 0.0678. TRENDING DOWN AT THIS TIME.
--- NOTE | 2018-11-17 07:30 | NUR ---
RECEIVED BEDSIDE REPORT FROM RETINA SUBSPECIALIST RN. PATIENT IS AAOX4, ABLE TO MAKE NEEDS KNOWN AND FOLLOWS COMMANDS. DENIES PAIN. AFEBRILE. SINUS TACHYCARDIA ON MONITOR. PATIENT IS ON ROOM AIR, WHEEZES HEARD BILATERALLY UPON AUSCULTATION. BREATHING EVEN AND UNLABORED, NO SOB NOTED. PERIPHERAL IV TO RIGHT FOREARM ASYMPTOMATIC, PATENT AND PATENT. BREAKFAST SERVED. ABLE TO EAT INDEPENDENTLY. SKIN IS INTACT, DRY, WARM TO TOUCH. PT IS CONTINENT. LIGHT YELLOW URINE NOTED IN URINAL. NO SIGNS OF DISTRESS NOTED. BED IN LOWEST POSITION, LOCKED. CALL LIGHT WITHIN REACH. WILL CONTINUE TO MONITOR.
--- NOTE | 2018-11-17 08:30 | NUR ---
PT HAD 100% OF BREAKFAST. NO C/O DISCOMFORT OR PAIN AT THIS TIME. VSS. WILL CONTINUE TO MONITOR.
[2018-11-17] MEDS ORDERED: PROBIOTIC SCREEN 1 EA MISC MC PRN (09:05)
[2018-11-17 12:00] VITALS: BP 131/66
--- NOTE | 2018-11-17 12:05 | NUR ---
LUNCH PROVIDED. PT ABLE TO EAT INDEPENDENTLY. NO SOB NOTED. VSS.
--- NOTE | 2018-11-17 12:28 | NUR ---
DR. PATTON IN TO SEE PT. WILL FOLLOW UP ON ORDERS.
[2018-11-17] MEDS ORDERED: ACET-1182 PO (12:29)
[2018-11-17] MEDS ORDERED: ONDA2SOL45 IVP (12:29)
[2018-11-17] MEDS ORDERED: PRED10TA5 PO (12:29)
[2018-11-17] MEDS ORDERED: FURO-570 PO (12:29)
[2018-11-17] MEDS ORDERED: NICO-532 TD (12:29)
[2018-11-17] MEDS ORDERED: ALBU3SOL83 IH (12:29)
[2018-11-17 13:06] LABS: ANION GAP 13.5 (8-16); CARBON DIOXIDE 27.2 mmol/L (21-32); CREATININE 1.8 mg/dL (0.7-1.3); POTASSIUM 3.7 mmol/L (3.5-5.1)
--- NOTE | 2018-11-17 13:32 | NUR ---
Product Assembler Note: Per RN Mahnaz, patient is in agreement with [facility] referral . I faxed referral to [facility], fax number . I called and spoke with Domingo from [facility], I confirmed with her she received referral. Domingo stated someone from their company will come to hospital and meet with patient. Domingo reported they will provide patient's nurse with updates.
[2018-11-17] MEDS: NICOTINE TRANSD SYS 21 MG/24 HR PATCH TD SCH (14:21)
--- NOTE | 2018-11-17 15:10 | NUR ---
RECEIVED A CALL FROM NOLVIA FROM [facility]. PAT WILL COME AND SEE PT IN ABOUT AN HOUR.
--- NOTE | 2018-11-17 16:25 | NUR ---
HOSPICE NURSE AT BEDSIDE TALKING TO PT. PT C/O SOB WHILE TALKING. O2 SAT 96% AT THIS TIME. DR. PATTON MADE AWARE. ORDER RECEIVED.
[2018-11-17] MEDS: FUROSEMIDE 40 MG TAB PO SCH (16:47)
[2018-11-17 18:25] VITALS: BP 143/93
--- NOTE | 2018-11-17 18:25 | NUR ---
RECEIVED PATIENT VIA WHEELCHAIR FROM ICU. RECEIVED REPORT FROM ACCESS DATABASE DEVELOPER JESSE. PT IN STABLE CONDITION. AMBULATORY WITHOUT ASSIST. SKIN INTACT. NO S/S DISTRESS. AOX4. ABLE TO MAKE NEEDS KNOWN. PT TO BE DISCHARGED TO HOSPICE WHEN BED AVAILABLE. WILL PROVIDE COMFORT MEASURES. ALL SAFETY PRECAUTIONS IN PLACE, WILL CONTINUE TO MONITOR.
--- NOTE | 2018-11-17 18:25 | NUR ---
PT TRANSFERRED TO [facility] ROOM 111A. REPORT GIVEN TO ASHLEY CHUN AT BEDSIDE. PT ABLE TO AMBULATE FROM WHEELCHAIR TO BED. PT IS IN STABLE CONDITION. NO ACUTE DISTRESS NOTED AT THIS TIME.
--- NOTE | 2018-11-17 19:37 | NUR ---
ENDORSED POC TO HEEL VARNISHER RN AT BEDSIDE. PT IN STABLE CONDITION.
--- NOTE | 2018-11-17 19:38 | NUR ---
RECEIVED REPORT FROM DAY SHIFT RN. PT IS A&OX4. RT AT BEDSIDE. RESPIRATIONS ARE EQUAL AND UNLABORED. DENIES SOB OR PAIN. IV TO R FA 20G SALINE LOCK. PT IS AMBULATORY PER NURSE AND ABLE TO USE URINAL. HE IS ON A CARDIAC DIET. PT TO BE TRANSFERRED TO HOSPICE FACILITY. AWAITING FOR BED BE AVAILABLE. COMFORT MEASURES IN PLACE. PLAN OF CARE DISCUSSED WITH PATIENT. PATIENT VERBALIZED UNDERSTANDING. CALL LIGHT WITHIN REACH.
--- NOTE | 2018-11-17 20:30 | NUR ---
PATIENT SITTING UP EATING A CHOCOLATE PUDDING. DENIES ANY PAIN. ALL NEEDS MET AT THIS TIME. WILL CONTINUE TO MONITOR.
[2018-11-18] VITALS: BP 114/67
--- NOTE | 2018-11-18 | NUR ---
VITAL SIGNS ARE WITHIN NORMAL LIMITS. ALL NEEDS MET AT THIS TIME WILL CONTINUE TO MONITOR.
[2018-11-18] MEDS: ALBUTEROL SULFATE/IPRATROPIU 3 ML SOL IH SCH ×3 (00:27→12:30)
--- NOTE | 2018-11-18 02:12 | NUR ---
PT ASLEEP. RESPIRATIONS ARE EQUAL AND UNLABORED. NO DISTRESS NOTED. CALL LIGHT WITHIN REACH.
--- NOTE | 2018-11-18 04:24 | NUR ---
PT IS SLEEPING COMFORTABLY IN BED. NO SIGNS OR SYMPTOMS OF DISTRESS. RESPIRATIONS ARE EQUAL AND UNLABORED. CALL LIGHT WITHIN REACH.
--- NOTE | 2018-11-18 07:30 | NUR ---
ENDORSED PATIENT TO DAY SHIFT. PATIENT IS IN STABLE CONDITION.
--- NOTE | 2018-11-18 07:31 | NUR ---
RECEIVED BEDSIDE REPORT FROM CIVIL ENGINEER LAND DEVELOPMENT RN. PATIENT IS AAOX4, ABLE TO MAKE NEEDS KNOWN AND FOLLOWS COMMANDS. DENIES PAIN. SR ON MONITOR. PATIENT IS ON ROOM AIR, WHEEZES HEARD BILATERALLY UPON AUSCULTATION. BREATHING EVEN AND UNLABORED, NO SOB NOTED. PERIPHERAL IV TO RIGHT FOREARM ASYMPTOMATIC. SKIN IS INTACT, DRY, WARM TO TOUCH. NO SIGNS OF DISTRESS NOTED. BED IN LOWEST POSITION, LOCKED. CALL LIGHT WITHIN REACH. WILL CONTINUE TO MONITOR.
[2018-11-18 08:00] VITALS: BP 134/94
[2018-11-18] MEDS: FUROSEMIDE 40 MG TAB PO SCH (08:56)
[2018-11-18] MEDS ORDERED: LACTOBACILLUS RHAMNOSUS GG 1 EACH CAP PO SCH (09:00)
--- NOTE | 2018-11-18 11:01 | NUR ---
Inside Sales Agent Note: I called and spoke with Domingo from [facility] to obtain an update, per Doimngo, patient has not sign hospice consent form/s. She stated their staff is trying to find a snf willing to accept patient and once they do patient will sign hospice consent form/s. Domingo told me that if their staff is not able to find a snf able to accept patient today by 3pm they will refer patient to another company and asked me if that was okay with me. I instructed her to please notify attending MD () if they cannot locate a snf able to accommodate patient.
--- NOTE | 2018-11-18 11:10 | NUR ---
PATIENT ASSISTED IN AMBULATION TO SHOWER. PATIENT AMBULATORY WITH STEADY GAIT. MILD SOB NOTED, NO ACUTE DISTRESS NOTED AT THIS TIME.
--- NOTE | 2018-11-18 14:18 | NUR ---
Duplicator Punch Operator Note: I received a call from Domingo at [facility] , she stated they have not been able to find a snf able to accept patient.
[2018-11-18] MEDS: NICOTINE TRANSD SYS 21 MG/24 HR PATCH TD SCH (14:27)
--- NOTE | 2018-11-18 15:00 | NUR ---
PATIENT SEEN AMBULATING DOWN [place] TO ED, SECURITY PLACED PATIENT BACK IN ROOM. PATIENT STATED HE WANTED TO GO SMOKE, PER SECURITY AND HOSPITAL POLICY, PATIENT UNABLE TO GO AT THIS TIME, IN AGREEMENT.
--- NOTE | 2018-11-18 15:01 | NUR ---
Engineering Faculty Member Note: I received a call from Kat at [facility] , she stated [facility] has agreed to accept patient, however, patient is not allowed to smoke at their facility. Per Pat, she is going to speak with patient regarding this.
[2018-11-18 16:00] VITALS: BP 124/63
[2018-11-18 17:21] VITALS: BP 124/63
--- NOTE | 2018-11-18 18:08 | NUR ---
SBAR REPORT GIVEN TO ASHLEY BALL AT [facility], ACCEPTING RN. PATIENT TO BE TRANSFERRED UNDER THE CARE OF HOSPICE FACILITY. PATIENT IN AGREEMENT. [facility] HERE TO TAKE PATIENT. PATIENT SITTING IN BED EATING AT THIS TIME.
--- NOTE | 2018-11-18 18:43 | NUR ---
PATIENT BEING TAKEN BY [facility], NO ACUTE DISTRESS NOTED. PATIENT FINISHED DINNER BEFORE DISCHARGE. DISCHARGE TEACHING GIVEN, VERBALIZED UNDERSTANDING. PATIENT BEING TRANSFERRED WITH IV INTACT AND PATENT.
== END 2018-11-18 18:35 | DRG 871 ==
LOC: MED 07:00 → MIC 10:20 → MTU 11-17 18:22
PROVIDERS: ADMIT Internal Medicine Pulmonary Disease; ATTEND Internal Medicine Pulmonary Disease
DX: A41.9 Sepsis, unspecified organism (principal); I21.A1 Myocardial infarction type 2; N17.0 Acute kidney failure with tubular necrosis; I50.41 Acute combined systolic (congestive) and diastolic (congestive) heart failure; I13.0 Hypertensive heart and chronic kidney disease with heart failure and stage 1 through stage 4 chronic kidney disease, or unspecified chronic kidney disease; J44.1 Chronic obstructive pulmonary disease with (acute) exacerbation; Z66 Do not resuscitate; K52.9 Noninfective gastroenteritis and colitis, unspecified; F17.210 Nicotine dependence, cigarettes, uncomplicated; E86.0 Dehydration; F15.10 Other stimulant abuse, uncomplicated; I25.10 Atherosclerotic heart disease of native coronary artery without angina pectoris; N18.9 Chronic kidney disease, unspecified; R73.9 Hyperglycemia, unspecified; Z51.5 Encounter for palliative care; Z59.0 Homelessness; Z88.5 Allergy status to narcotic agent; Z79.899 Other long term (current) drug therapy
CPT/HCPCS: 36415; 71045; 76770; 80048; 80053; 80305; 81001; 82550; 83036; 83605; 83735; 83880; 84100; 84484; 85025; 85610; 85730; 87040; 87081; 87086; 93005; 93970; 94640; 96361; 96374; 96375; 99291; G0480; G0482; J1644; J1940; J2405; J2543; J2920; J3490; J7030; J7613; J7620; J7644; Q0092